=== PATIENT | female | born 2000 | race Caucasian/White ===

== ENCOUNTER 2021-02-15 01:33 | Emergency (ER) | payer OTHER ==
--- NOTE | 2021-02-15 02:14 | ERPHSYRPT ---
- History of Present Illness Time Seen by Provider: 02/15/21 02:14 Historian: patient, family Exam Limitations: no limitations Physician History: This is a 20-year-old white female who presents with 2 days history of left lower quadrant/left suprapubic pain. The pain is sharp and nonradiating. Associated with nausea but no vomiting. She has had no diarrhea. She is currently on her menstrual period he has never had a thing like this in the past. She has no chest pain she has no shortness of breath. Patient has taken a amoxicillin plane in the past without any issues per mom report. Timing/Duration: day(s) (2) Activities at Onset: none Quality: sharpness, stabbing Abdominal Pain Onset Location: LLQ Pain Radiation: no radiation Severity of Pain-Max: moderate Severity of Pain-Current: mild Modifying Factors: Improves With: nothing Associated Symptoms: nausea, No chest pain, No diarrhea, No fever/chills, No shortness of breath, No vomiting Previous symptoms: no prior history Allergies/Adverse Reactions: amoxicillin trihydrate [From Augmentin] Allergy (Verified 02/15/21 04:00) Shortness of Breath potassium clavulanate [From Augmentin] Allergy (Verified 02/15/21 04:00) Shortness of Breath Hx Influenza Vaccination/Date Given: No Travel Risk - International Travel Have you traveled outside of the country in past 3 weeks: No - Coronavirus Screening Are you exhibiting any of the following symptoms?: No Close contact with a COVID-19 positive Pt in past 14-21 Days: No - Review of Systems Constitutional: No Symptoms Eyes: No Symptoms Ears, Nose, & Throat: No Symptoms Respiratory: No Symptoms Cardiac: No Symptoms Abdominal/Gastrointestinal: Abdominal Pain, Nausea, No Vomiting, No Diarrhea Genitourinary Symptoms: No Symptoms Musculoskeletal: No Symptoms Skin: No Symptoms Neurological: No Symptoms Psychological: No Symptoms Endocrine: No Symptoms Hematologic/Lymphatic: No Symptoms Immunological/Allergic: No Symptoms All Other Systems: Reviewed and Negative - Past Medical History Pertinent Past Medical History: No Neurological History: No Pertinent History Cardiac History: No Pertinent History Respiratory History: No Pertinent History Endocrine Medical History: No Pertinent History Musculoskeletal History: No Pertinent History - Past Surgical History Past Surgical History: Yes Musculoskeletal: Other Other Surgical History: dental, tubes in ears, adenoidectomy - Social History Smoking Status: Never smoker Exposure to second hand smoke: Yes Drug Use: none - Nursing Vital Signs Nursing Vital Signs: Initial Vital Signs Temperature 98.2 F 02/15/21 02:00 Pulse Rate 86 02/15/21 02:00 Respiratory Rate 18 02/15/21 02:00 Blood Pressure 140/88 02/15/21 02:00 O2 Sat by Pulse Oximetry 99 02/15/21 02:00 Pain Scale Pain Intensity 3 - Physical Exam General Appearance: no apparent distress, alert, anxiety, obese Eye Exam: PERRL/EOMI, eyes nml inspection Ears, Nose, Throat Exam: normal ENT inspection, moist mucous membranes Neck Exam: normal inspection, non-tender, supple, full range of motion Respiratory Exam: normal breath sounds, lungs clear, airway intact, No chest tenderness, No respiratory distress Cardiovascular Exam: regular rate/rhythm, normal heart sounds, normal peripheral pulses Gastrointestinal/Abdomen Exam: soft, normal bowel sounds, tenderness (Left lower quadrant), guarding, No rebound Pelvic Exam: not done Rectal Exam: not done Back Exam: normal inspection, normal range of motion, No CVA tenderness, No vertebral tenderness Extremity Exam: normal inspection, normal range of motion, pelvis stable Neurologic Exam: alert, oriented x 3, cooperative, criminal justice lawyer II-XII nml as tested, normal mood/affect, nml cerebellar function, nml station & gait, sensation nml Skin Exam: normal color, warm, dry Lymphatic Exam: No adenopathy SpO2 Interpretation: normal O2 Delivery: Room Air - Course Nursing assessment & vital signs reviewed: Yes Ordered Tests: Active Orders 24 hr Category Date Time Status IV Insertion STAT Care 02/15/21 02:30 Active ABDOMEN AND PELVIS W/0 CONTRAS [CT] Stat Exams 02/15/21 02:31 Taken AMYLASE Stat Lab 02/15/21 02:59 Completed CBC W DIFF Stat Lab 02/15/21 02:59 Completed CMP Stat Lab 02/15/21 02:59 Completed CULTURE,URINE Stat Lab 02/15/21 02:59 Received HCG,QUALITATIVE URINE Stat Lab 02/15/21 02:59 Completed LIPASE Stat Lab 02/15/21 02:59 Completed Lactic Acid Stat Lab 02/15/21 03:00 Completed UA W/RFX UR CULTURE Stat Lab 02/15/21 02:59 Completed Medication Summary Generic Name Dose Route Start Last Admin Trade Name Freq PRN Reason Stop Dose Admin Ceftriaxone Sodium/Dextrose 1 g in 50 mls @ 100 mls/hr 02/15/21 05:34 Rocephin 1 Gm-D5w 50 Ml Bag IV 02/15/21 06:03 STAT STA Discontinued Medications Generic Name Dose Route Start Last Admin Trade Name Ki PRN Reason Stop Dose Admin Ceftriaxone Sodium/Dextrose Confirm 02/15/21 05:41 Rocephin 1 Gm-D5w 50 Ml Bag Administered 02/15/21 05:42 Dose 1 g in 50 mls @ ud IV .STK-MED ONE Lab/Rad Data: Laboratory Result Diagrams 02/15/21 02:59 02/15/21 02:59 Laboratory Results 02/15/21 02/15/21 02/15/21 Range/Units 03:00 02:59 02:59 WBC (4.0-10.5) K/mm3 RBC (4.1-5.4) M/mm3 Hgb (12.0-16.0) gm/dl Hct (35-47) % MCV (78-100) fl MCH (26-32) pg MCHC (32-36) g/dl RDW (11.5-14.0) % Plt Count (150-450) K/mm3 MPV (7.5-11.0) fl Gran % (36.0-66.0) % Eos # (Auto) (0-0.5) Absolute Lymphs (auto) (1.0-4.6) Absolute Monos (auto) (0.0-1.3) Lymphocytes % (24.0-44.0) % Monocytes % (0.0-12.0) % Eosinophils % (0.00-5.0) % Basophils % (0.0-0.4) % Absolute Granulocytes (1.4-6.9) Basophils # (0-0.4) Sodium 141 (137-145) mmol/L Potassium 3.7 (3.5-5.1) mmol/L Chloride 106 (98-107) mmol/L Carbon Dioxide 25 (22-30) mmol/L Anion Gap 13.5 (5-15) MEQ/L BUN 8 (7-17) mg/dL Creatinine 0.75 (0.52-1.04) mg/dL Estimated GFR > 60.0 ML/MIN Glucose 98 (74-106) mg/dL Lactic Acid 1.0 (0.4-2.0) Calcium 9.6 (8.4-10.2) mg/dL Total Bilirubin 0.30 (0.2-1.3) mg/dL AST 20 (14-36) U/L ALT 9 (0-35) U/L Alkaline Phosphatase 82 (38-126) U/L Serum Total Protein 7.7 (6.3-8.2) g/dL Albumin 4.4 (3.5-5.0) g/dL Amylase 64 (30-110) U/L Lipase 65 (23-300) U/L Urine Color (YELLOW) Urine Appearance (CLEAR) Urine pH (5-6) Ur Specific Iselin (1.005-1.025) Urine Protein (Negative) Urine Ketones (NEGATIVE) Urine Blood (0-5) Garcia/ul Urine Nitrite (NEGATIVE) Urine Bilirubin (NEGATIVE) Urine Urobilinogen (0-1) mg/dL Ur Leukocyte Esterase (NEGATIVE) Urine WBC (Auto) (0-5) /HPF Urine RBC (Auto) (0-2) /HPF U Epithel Cells (Auto) (FEW) /HPF Urine Bacteria (Auto) (NEGATIVE) /HPF Urine Culture Reflexed (NO) Urine Glucose (NEGATIVE) mg/dL Urine HCG, Qual NEGATIVE (Negative) 02/15/21 02/15/21 Range/Units 02:59 02:59 WBC 8.4 (4.0-10.5) K/mm3 RBC 3.75 L (4.1-5.4) M/mm3 Hgb 11.8 L (12.0-16.0) gm/dl Hct 37.0 (35-47) % MCV 98.7 (78-100) fl MCH 31.5 (26-32) pg MCHC 31.9 L (32-36) g/dl RDW 12.7 (11.5-14.0) % Plt Count 303 (150-450) K/mm3 MPV 10.5 (7.5-11.0) fl Gran % 44.1 (36.0-66.0) % Eos # (Auto) 0.09 (0-0.5) Absolute Lymphs (auto) 4.08 (1.0-4.6) Absolute Monos (auto) 0.51 (0.0-1.3) Lymphocytes % 48.6 H (24.0-44.0) % Monocytes % 6.1 (0.0-12.0) % Eosinophils % 1.1 (0.00-5.0) % Basophils % 0.1 (0.0-0.4) % Absolute Granulocytes 3.71 (1.4-6.9) Basophils # 0.01 (0-0.4) Sodium (137-145) mmol/L Potassium (3.5-5.1) mmol/L Chloride (98-107) mmol/L Carbon Dioxide (22-30) mmol/L Anion Gap (5-15) MEQ/L BUN (7-17) mg/dL Creatinine (0.52-1.04) mg/dL Estimated GFR ML/MIN Glucose (74-106) mg/dL Lactic Acid (0.4-2.0) Calcium (8.4-10.2) mg/dL Total Bilirubin (0.2-1.3) mg/dL AST (14-36) U/L ALT (0-35) U/L Alkaline Phosphatase (38-126) U/L Serum Total Protein (6.3-8.2) g/dL Albumin (3.5-5.0) g/dL Amylase (30-110) U/L Lipase (23-300) U/L Urine Color STRAW (YELLOW) Urine Appearance SLIGHTLY CLOUDY (CLEAR) Urine pH 7.0 (5-6) Ur Specific Iselin 1.004 (1.005-1.025) Urine Protein NEGATIVE (Negative) Urine Ketones NEGATIVE (NEGATIVE) Urine Blood LARGE (0-5) Garcia/ul Urine Nitrite NEGATIVE (NEGATIVE) Urine Bilirubin NEGATIVE (NEGATIVE) Urine Urobilinogen NEGATIVE (0-1) mg/dL Ur Leukocyte Esterase SMALL (NEGATIVE) Urine WBC (Auto) 3-5 (0-5) /HPF Urine RBC (Auto) 0-2 (0-2) /HPF U Epithel Cells (Auto) RARE (FEW) /HPF Urine Bacteria (Auto) RARE (NEGATIVE) /HPF Urine Culture Reflexed YES (NO) Urine Glucose NEGATIVE (NEGATIVE) mg/dL Urine HCG, Qual (Negative) - Progress Progress: improved, pain not gone completely, re-examined Progress Note: 02/15/21 05:47 Reexamination reveals the patient to have resolution of her pain. CAT scan of the abdomen pelvis without contrast shows no acute intra-abdominal or intrapelvic findings. 02/15/21 05:49 Patient is refusing intravenous Rocephin. She will take her oral antibiotic prescription once she picks it up at the pharmacy Counseled pt/family regarding: lab results, diagnosis, need for follow-up, rad results - Departure Departure Disposition: Home Clinical Impression: UTI (urinary tract infection) Condition: Stable Critical Care Time: No Referrals: ALONDRA MADDEN MD [Primary Care Provider] - Additional Instructions: Drink plenty of fluids. Take medication as prescribed. Use Tylenol and ibuprofen for pain control. Prescriptions: Ciprofloxacin [Cipro 500 MG] 500 mg PO BID #14 tablet
[2021-02-15 03:02] LABS: Absolute Neutrophil Ct (ANC) 3.71 (1.4-6.9); BASOPHIL % 0.1 % (0.0-0.4); Basophil (Absolute #) 0.01 (0-0.4); Eosinophil % 1.1 % (0.00-5.0); Eosinophil (Absolute #) 0.09 (0-0.5); Hemoglobin 11.8 gm/dl (12.0-16.0); Lymphocyte (Absolute #) 4.08 (1.0-4.6); Lymphocytes % 48.6 % (24.0-44.0); Mean Cell Volume 98.7 fl (78-100); Mean Corpuscular Hemoglobin 31.5 pg (26-32); Mean Corpuscular Hgb Concent. 31.9 g/dl (32-36); Mean Platelet Volume 10.5 fl (7.5-11.0); Monocyte (Absolute #) 0.51 (0.0-1.3); Monocytes % 6.1 % (0.0-12.0); Neutrophil % 44.1 % (36.0-66.0); Platelet Count 303 K/mm3 (150-450); Red Blood Count 3.75 M/mm3 (4.1-5.4); Red Cell Distribution Width 12.7 % (11.5-14.0); White Blood Count 8.4 K/mm3 (4.0-10.5)
[2021-02-15 03:12] LABS: Appearance SLIGHTLY CLOUDY (CLEAR); Bacteria RARE /HPF (NEGATIVE); Bilirubin NEGATIVE (NEGATIVE); Blood LARGE Ery/ul (0-5); Epithelial Cells RARE /HPF (FEW); Glucose NEGATIVE (NEGATIVE); Ketones NEGATIVE (NEGATIVE); Leukocyte Esterase SMALL (NEGATIVE); Nitrite NEGATIVE (NEGATIVE); Protein,Urine Dip NEGATIVE (Negative); RBC 0-2 /HPF (0-2); Specific Gravity 1.004 (1.005-1.025); Urobilinogen NEGATIVE mg/dL (0-1)
[2021-02-15 03:13] LABS: ALBUMIN 4.4 g/dL (3.5-5.0); ALKALINE PHOSPHATASE 82 U/L (38-126); AMYLASE 64 U/L (30-110); ANION GAP 13.5 MEQ/L (5-15); BLOOD UREA NITROGEN 8 mg/dL (7-17); CHLORIDE 106 mmol/L (98-107); Calcium 9.6 mg/dL (8.4-10.2); Carbon Dioxide 25 mmol/L (22-30); Creatinine 1 0.75 mg/dL (0.52-1.04); EST GLOMERULAR FILTRATION RATE > 60.0 ML/MIN; Glucose 98 mg/dL (74-106); LIPASE 65 U/L (23-300); Potassium 3.7 mmol/L (3.5-5.1); SGOT/AST 20 U/L (14-36); SGPT/ALT 9 U/L (0-35); SODIUM 141 mmol/L (137-145); Total Protein 7.7 g/dL (6.3-8.2)
[2021-02-15 03:38] VITALS: O2SAT 98
[2021-02-15] MEDS ORDERED: ROCEPHIN 1 Gm-D5w 50 ml Bag** 1 G/50 ML IVPB IV STA (05:34)
[2021-02-15] MEDS ORDERED: ROCEPHIN 1 Gm-D5w 50 ml Bag** 0 G/0 ML IVPB IV ONE (05:41)
[2021-02-15 06:19] VITALS: BP 118/86; PULSE 78
--- NOTE | 2021-02-15 07:51 | XRAY ---
Indication: Abdomen pain and nausea. Multiple contiguous axial images obtained through the abdomen and pelvis without contrast. Comparison: None Lung bases are clear. Heart not enlarged. Noncontrasted stomach and bowel loops are nonobstructed. Normal appendix. Mild diffuse scattered colonic fecal debris greatest in the ascending colon. No free fluid/air. Scattered centimeter/subcentimeter mid mesenteric nodes, possibly adenitis. Remaining liver, gallbladder, pancreas, spleen, adrenal glands, kidneys, ureters, bladder, uterus, and aorta unremarkable for noncontrast exam. Osseous structures intact. No ventral or inguinal hernias. Impression: 1. Mild fecal stasis. 2. Scattered centimeter/subcentimeter mesenteric nodes, possibly adenitis. 3. Remaining CT abdomen/pelvis without contrast exam is negative. Comment: Preliminary interpretation was made by [facility]. No critical discrepancy.
== END 2021-02-15 06:18 | disposition home or self-care (01) ==
LOC: ED 01:33
DX: N39.0 Urinary tract infection, site not specified (principal); R10.32 Left lower quadrant pain; R11.0 Nausea
CPT/HCPCS: 36000; 36415; 74176; 80053; 81001; 82150; 83605; 83690; 84703; 85025; 87077; 87086; 87186; 99284; J0696

== ENCOUNTER 2021-12-09 23:43 | Emergency (ER) | payer OTHER ==
--- NOTE | 2021-12-10 00:44 | ERPHSYRPT ---
- History of Present Illness Time Seen by Provider: 12/10/21 00:10 Source: patient Exam Limitations: no limitations Patient Subjective Stated Complaint: pt states "My stomach started cramping last night before I went to bed and I am worried since I am ." Triage Nursing Assessment: Pt alert and oriented x3, pt ambulated to cot appropriately by self, pt attempted to give urine sample but unable at this time, pt c/o lower abd cramping that started around 2300 when she was going to bed, pt states "it feels like period cramps," pt is 7 weeks , Dr. Hodge is OB doctor, pt had first ultrasound on 12/07, pt denies bleeding, fever, vom iting, diarrhea Physician History: Patient is a 21-year-old female M0 A0, currently 7 weeks presents to our ED for evaluation of pelvic cramping. Cramping started last night. Cramping became progressively worse. Patient rated the pain 11 on a 10 on a scale. No vaginal bleeding.However upon arrival to our ED, cramping pain significantly improved. Cramping pain currently rated 2 out of 10. Patient declined pain medication. Patient states she had a pelvic exam within the past couple weeks at Dr. Longo's office. Patient states all was normal. Patient declined a pelvic exam at this time. She has no vaginal bleeding.Patient's last pelvic ultrasound was performed on December 07. Patient states she recently had an hCG performed in her OBs office. Patient was advised that the hCG level is dropping. Her OB then ordered an ultrasound to be performed this morning. Patient came early this morning and did not wait for her a.m. ultrasound because the pain was so severe.Patient is otherwise healthy. Patient has been taking her vitamins as Recommended. Patient otherwise voices no other complaints or concerns at this time. Timing/Duration: yesterday Severity: mild Modifying Factors: Improves With: nothing Associated Symptoms: denies symptoms, No nausea, No vomiting, No abdominal pain, No shortness of breath, No diaphoresis, No headaches, No syncope, No seizure, No weakness Allergies/Adverse Reactions: amoxicillin trihydrate [From Augmentin] Allergy (Verified 12/10/21 00:02) Shortness of Breath potassium clavulanate [From Augmentin] Allergy (Verified 12/10/21 00:02) Shortness of Breath Hx Tetanus, Diphtheria Vaccination/Date Given: No Hx Influenza Vaccination/Date Given: No Hx Pneumococcal Vaccination/Date Given: No Immunizations Up to Date: Yes Travel Risk - International Travel Have you traveled outside of the country in past 3 weeks: No - Coronavirus Screening Are you exhibiting any of the following symptoms?: No - Vaccine Status Have you recieved a Covid-19 vaccination: Yes [employer]: [employer] - Vaccination Dates Date of 2cond Vaccination (if applicable): jun 2021 - Review of Systems Constitutional: No Symptoms, No Fever, No Chills Eyes: No Symptoms Ears, Nose, & Throat: No Symptoms Respiratory: No Symptoms, No Cough, No Dyspnea Cardiac: No Symptoms, No Chest Pain, No Edema, No Syncope Abdominal/Gastrointestinal: No Symptoms, No Abdominal Pain, No Nausea, No Vomiting, No Diarrhea Genitourinary Symptoms: No Symptoms, No Dysuria Musculoskeletal: No Symptoms, No Back Pain, No Neck Pain Skin: No Symptoms, No Rash Neurological: No Symptoms, No Dizziness, No Focal Weakness, No Sensory Changes Psychological: No Symptoms Endocrine: No Symptoms Hematologic/Lymphatic: No Symptoms Immunological/Allergic: No Symptoms All Other Systems: Reviewed and Negative - Past Medical History Pertinent Past Medical History: No Neurological History: No Pertinent History ENT History: No Pertinent History Cardiac History: No Pertinent History Respiratory History: No Pertinent History Endocrine Medical History: No Pertinent History Musculoskeletal History: No Pertinent History GI Medical History: No Pertinent History History: No Pertinent History Psycho-Social History: No Pertinent History Female Reproductive Disorders: No Pertinent History - Past Surgical History Past Surgical History: Yes Neuro Surgical History: No Pertinent History Cardiac: No Pertinent History Respiratory: No Pertinent History Gastrointestinal: No Pertinent History Genitourinary: No Pertinent History Musculoskeletal: Other Female Surgical History: No Pertinent History Other Surgical History: dental, tubes in ears, adenoidectomy - Social History Smoking Status: Former smoker Exposure to second hand smoke: Yes Drug Use: none Patient Lives Alone: No - Female History Hx Last Menstrual Period: Oct 16, 2021 Hx Now: Yes - Nursing Vital Signs Nursing Vital Signs: Initial Vital Signs Temperature 99.6 F 12/10/21 00:05 Pulse Rate 101 H 12/10/21 00:05 Respiratory Rate 16 12/10/21 00:05 Blood Pressure 132/83 12/10/21 00:05 O2 Sat by Pulse Oximetry 100 12/10/21 00:05 Pain Scale Pain Intensity 2 - Physical Exam General Appearance: no apparent distress, alert Eye Exam: PERRL/EOMI, eyes nml inspection Ears, Nose, Throat Exam: normal ENT inspection, TMs normal, pharynx normal, moist mucous membranes Neck Exam: normal inspection, non-tender, supple, full range of motion Respiratory Exam: normal breath sounds, lungs clear, airway intact, No respiratory distress Cardiovascular Exam: regular rate/rhythm, normal heart sounds, normal peripheral pulses Gastrointestinal/Abdomen Exam: soft, normal bowel sounds, No tenderness, No mass Back Exam: normal inspection, normal range of motion, No CVA tenderness, No vertebral tenderness Extremity Exam: normal inspection, normal range of motion, pelvis stable Neurologic Exam: alert, oriented x 3, cooperative, normal mood/affect, nml cerebellar function, nml station & gait, sensation nml, No motor deficits Skin Exam: normal color, warm, dry, No rash Lymphatic Exam: No adenopathy SpO2 Interpretation: normal SpO2: 100 O2 Delivery: Room Air - Course Nursing assessment & vital signs reviewed: Yes - Radiology Ultrasound Exam OB Ultrasound: discussed w/radiologist (Per hydrogen cell tender ultrasound shows a fetus of 6 weeks 6 days with a heart rate of 149) Ordered Tests: Active Orders 24 hr Category Date Time Status OB <14 WKS 1ST GESTATION [US] Stat Exams 12/10/21 00:28 Taken CBC W DIFF Stat Lab 12/10/21 00:43 Completed CMP Stat Lab 12/10/21 00:43 Completed HCG, Quantitative (Inhouse) Stat Lab 12/10/21 00:43 Completed Lab/Rad Data: Laboratory Result Diagrams 12/10/21 00:43 12/10/21 00:43 Laboratory Results 12/10/21 12/10/21 12/10/21 Range/Units 01:26 00:43 00:43 WBC (4.0-10.5) K/mm3 RBC (4.1-5.4) M/mm3 Hgb (12.0-16.0) gm/dl Hct (35-47) % MCV (78-100) fl MCH (26-32) pg MCHC (32-36) g/dl RDW (11.5-14.0) % Plt Count (150-450) K/mm3 MPV (7.5-11.0) fl Gran % (36.0-66.0) % Eos # (Auto) (0-0.5) Absolute Lymphs (auto) (1.0-4.6) Absolute Monos (auto) (0.0-1.3) Lymphocytes % (24.0-44.0) % Monocytes % (0.0-12.0) % Eosinophils % (0.00-5.0) % Basophils % (0.0-0.4) % Absolute Granulocytes (1.4-6.9) Basophils # (0-0.4) Sodium 139 (137-145) mmol/L Potassium 3.9 (3.5-5.1) mmol/L Chloride 106 (98-107) mmol/L Carbon Dioxide 22 (22-30) mmol/L Anion Gap 14.2 (5-15) MEQ/L BUN 8 (7-17) mg/dL Creatinine 0.61 (0.52-1.04) mg/dL Estimated GFR > 60.0 ML/MIN Glucose 93 (74-106) mg/dL Calcium 9.5 (8.4-10.2) mg/dL Total Bilirubin 0.50 (0.2-1.3) mg/dL AST 18 (14-36) U/L ALT 9 (0-35) U/L Alkaline Phosphatase 63 (38-126) U/L Serum Total Protein 6.9 (6.3-8.2) g/dL Albumin 4.2 (3.5-5.0) g/dL Beta HCG, Quant 5839.1 mIU/ml Urinalys Dipstick Clnc MAIN LAB Urine Color YELLOW (YELLOW) Urine Appearance CLEAR (CLEAR) Urine pH 6.5 (5-6) Ur Specific Mcdonald 1.015 (1.005-1.025) POC Urine Protein Conf NEGATIVE (Negative) Urine Ketones NEGATIVE (NEGATIVE) Urine Nitrite NEGATIVE (NEGATIVE) Urine Bilirubin NEGATIVE (NEGATIVE) Urine Urobilinogen 0.2 (0-1) mg/dL Urine Leukocytes NEGATIVE (NEGATIVE) Urine WBC (Auto) 0-2 (0-5) /HPF Urine RBC (Auto) 0-2 (0-2) /HPF U Epithel Cells (Auto) RARE (FEW) /HPF Urine Bacteria (Auto) NONE (NEGATIVE) /HPF Urine RBC NEGATIVE (0-5) Garcia/ul Ur Culture Indicated? NO Urine Glucose NEGATIVE (NEGATIVE) mg/dL 12/10/21 Range/Units 00:43 WBC 7.5 (4.0-10.5) K/mm3 RBC 3.51 L (4.1-5.4) M/mm3 Hgb 11.2 L (12.0-16.0) gm/dl Hct 34.9 L (35-47) % MCV 99.4 (78-100) fl MCH 31.9 (26-32) pg MCHC 32.1 (32-36) g/dl RDW 13.3 (11.5-14.0) % Plt Count 256 (150-450) K/mm3 MPV 10.6 (7.5-11.0) fl Gran % 57.2 (36.0-66.0) % Eos # (Auto) 0.08 (0-0.5) Absolute Lymphs (auto) 2.68 (1.0-4.6) Absolute Monos (auto) 0.44 (0.0-1.3) Lymphocytes % 35.7 (24.0-44.0) % Monocytes % 5.9 (0.0-12.0) % Eosinophils % 1.1 (0.00-5.0) % Basophils % 0.1 (0.0-0.4) % Absolute Granulocytes 4.30 (1.4-6.9) Basophils # 0.01 (0-0.4) Sodium (137-145) mmol/L Potassium (3.5-5.1) mmol/L Chloride (98-107) mmol/L Carbon Dioxide (22-30) mmol/L Anion Gap (5-15) MEQ/L BUN (7-17) mg/dL Creatinine (0.52-1.04) mg/dL Estimated GFR ML/MIN Glucose (74-106) mg/dL Calcium (8.4-10.2) mg/dL Total Bilirubin (0.2-1.3) mg/dL AST (14-36) U/L ALT (0-35) U/L Alkaline Phosphatase (38-126) U/L Serum Total Protein (6.3-8.2) g/dL Albumin (3.5-5.0) g/dL Beta HCG, Quant mIU/ml Urinalys Dipstick Clnc Urine Color (YELLOW) Urine Appearance (CLEAR) Urine pH (5-6) Ur Specific Mcdonald (1.005-1.025) POC Urine Protein Conf (Negative) Urine Ketones (NEGATIVE) Urine Nitrite (NEGATIVE) Urine Bilirubin (NEGATIVE) Urine Urobilinogen (0-1) mg/dL Urine Leukocytes (NEGATIVE) Urine WBC (Auto) (0-5) /HPF Urine RBC (Auto) (0-2) /HPF U Epithel Cells (Auto) (FEW) /HPF Urine Bacteria (Auto) (NEGATIVE) /HPF Urine RBC (0-5) Garcia/ul Ur Culture Indicated? Urine Glucose (NEGATIVE) mg/dL - Progress Progress: improved Progress Note: Patient reassessed. She remains pain-free. Case discussed with Dr. Hodge. Patient will called Dr. Hodge's Office in the morning to schedule follow-up appointment. 12/10/21 02:16 Beta hCG quant now trending upward. hCG on November 23 was 6198.7, HCG Dropped to 5599.6 on December 07, And today December 09 hCG increased to 5839.1 Patient agrees to follow-up with her [employer] doctor in the morning. She voices no other complaints or concerns at this time. Patient declined pain medication. Portions of this note were created with voice recognition technology. There may be grammatical, spelling, punctuation or sound alike errors 12/10/21 02:19 No urinary tract Infection observed on urinalysis 12/10/21 02:[address] Isaura Will see patient in: office Counseled pt/family regarding: lab results, diagnosis, rad results - Departure Departure Disposition: Home Clinical Impression: Pelvic cramping in antepartum period Condition: Stable Critical Care Time: No Referrals: ALONDRA MADDEN MD [Primary Care Provider] - Follow up/PCP as directed ALPA HODGE DO [ACTIVE STAFF] - Follow up/PCP as directed Additional Instructions: Discharge/Care Plan VLADROCIO TONE was seen on 12/10/21 in the Emergency Room. The patient was counseled regarding Diagnosis,Lab results, Imaging studies, need for follow up and when to return to the Emergency Room. Prescriptions given: Discharge Note I have spoken with the patient and/or caregivers. I have explained the patient's condition, diagnosis and treatment plan based on the information available to me at this time. I have answered the patient's and/or caregiver's questions and addressed any concerns. The patient and/or caregivers have as good understanding of the patient's diagnosis, condition and treatment plan as can be expected at this point. The vital signs have been stable. The patient's condition is stable and appropriate for discharge from the emergency department. The patient will pursue further outpatient evaluation with the primary care physician or other designated or consulting physician as outlined in the discharge instructions. The patient and/or caregivers are agreeable to this plan of care and follow-up instructions have been explained in detail. The patient and/or caregivers have received these instruction. The patient/and or caregivers are aware that any significant change in condition or worsening of symptoms should prompt an immediate return to this or the closest emergency department or call 911.
[2021-12-10 00:46] LABS: Basophil (Absolute #) 0.01 (0-0.4); Eosinophil % 1.1 % (0.00-5.0); Eosinophil (Absolute #) 0.08 (0-0.5); Hematocrit 34.9 % (35-47); Hemoglobin 11.2 gm/dl (12.0-16.0); Lymphocyte (Absolute #) 2.68 (1.0-4.6); Lymphocytes % 35.7 % (24.0-44.0); Mean Cell Volume 99.4 fl (78-100); Mean Corpuscular Hemoglobin 31.9 pg (26-32); Mean Corpuscular Hgb Concent. 32.1 g/dl (32-36); Mean Platelet Volume 10.6 fl (7.5-11.0); Monocyte (Absolute #) 0.44 (0.0-1.3); Monocytes % 5.9 % (0.0-12.0); Neutrophil % 57.2 % (36.0-66.0); Platelet Count 256 K/mm3 (150-450); Red Blood Count 3.51 M/mm3 (4.1-5.4); Red Cell Distribution Width 13.3 % (11.5-14.0); White Blood Count 7.5 K/mm3 (4.0-10.5)
[2021-12-10 01:03] LABS: ALBUMIN 4.2 g/dL (3.5-5.0); ALKALINE PHOSPHATASE 63 U/L (38-126); ANION GAP 14.2 MEQ/L (5-15); BLOOD UREA NITROGEN 8 mg/dL (7-17); CHLORIDE 106 mmol/L (98-107); Calcium 9.5 mg/dL (8.4-10.2); Carbon Dioxide 22 mmol/L (22-30); Creatinine 1 0.61 mg/dL (0.52-1.04); EST GLOMERULAR FILTRATION RATE > 60.0 ML/MIN; Glucose 93 mg/dL (74-106); Potassium 3.9 mmol/L (3.5-5.1); SGOT/AST 18 U/L (14-36); SGPT/ALT 9 U/L (0-35); SODIUM 139 mmol/L (137-145); Total Protein 6.9 g/dL (6.3-8.2)
[2021-12-10 01:40] LABS: Appearance CLEAR (CLEAR); Bilirubin NEGATIVE (NEGATIVE); Dipstick done @ ? MAIN LAB; Glucose NEGATIVE (NEGATIVE); Ketones NEGATIVE (NEGATIVE); Nitrite NEGATIVE (NEGATIVE); Ph 6.5 (5-6); Protein,Urine Dip NEGATIVE (Negative); RBC NEGATIVE Ery/ul (0-5); Specific Gravity 1.015 (1.005-1.025); Urobilinogen 0.2 mg/dL (0-1)
[2021-12-10 01:41] LABS: Epithelial Cells RARE /HPF (FEW); RBC 0-2 /HPF (0-2); WBC 0-2 /HPF (0-5)
[2021-12-10 01:42] LABS: Urine Cultured Indicated? NO
[2021-12-10 02:07] VITALS: BP 114/81; PULSE 86
[2021-12-10 02:21] VITALS: O2SAT 100
--- NOTE | 2021-12-10 08:49 | XRAY ---
Indication: Cramping. viability. Two-dimensional transvaginal early OB ultrasound performed. Comparison: None Single intrauterine gestational sac with presence of a single pole and yolk sac. Mean crown-rump length measures 0.88 cm corresponding to 6 weeks 6 days. heart rate 149 bpm. No abnormal subchorionic fluid. Lower uterine segment demonstrates tiny sliver of fluid. Right ovary unremarkable. Left ovary not visualized. Impression: Single viable intrauterine measuring 6 weeks 6 days. Expected date confinement is July 30, 2022. Tiny nonspecific fluid in lower uterine segment. Comment: Preliminary report was given.
== END 2021-12-10 02:41 | disposition home or self-care (01) ==
LOC: ED 23:43
DX: O26.891 Other specified pregnancy related conditions, first trimester (principal); Z3A.01 Less than 8 weeks gestation of pregnancy; R10.2 Pelvic and perineal pain
CPT/HCPCS: 36415; 76801; 80053; 81015; 84702; 85025; 99284

== ENCOUNTER 2021-12-15 06:31 | Day surgery (SDC) | payer OTHER ==
[~2021-12-15 06:31] MED LIST: Lactated Ringers 1,000 ML IV SCH
[2021-12-15] MEDS ORDERED: Vibramycin 100 MG PO SCH (07:30)
[2021-12-15] MEDS ORDERED: Lactated Ringers 1,000 ML IV ONE (07:31)
[2021-12-15] MEDS ORDERED: SUBLIMAZE 100 MCG/2 ML ONE ×2 (08:29→09:09)
[2021-12-15] MEDS ORDERED: Versed 2 MG/2 ML Injection ONE (08:29)
[2021-12-15] MEDS ORDERED: DIPRIVAN 200 MG/20 ML IV ONE (08:29)
--- NOTE | 2021-12-15 08:38 | XRAY ---
Indication: No heart tones. demise. Limited transvaginal early OB ultrasound performed. Comparison: December 11, 2021. Again single intrauterine gestational sac with presence of a single pole. Mean crown-rump length measures 1.16 cm corresponding to 7 weeks 2 days. No heart tones detected. Impression: Again single intrauterine measuring 7 weeks 2 days. No progression in . Also no heart tones again favoring demise.
[2021-12-15] MEDS ORDERED: Decadron 4 MG INJ ONE (08:44)
[2021-12-15] MEDS ORDERED: Zofran 4 MG/2 ML VIAL ONE (08:46)
[2021-12-15] MEDS ORDERED: TORAdol 30 mg Injection ONE (08:47)
[2021-12-15 10:03] LABS: ABO TYPING O; RH TYPING POSITIVE
[2021-12-15 10:14] LABS: Antibody Screen NEGATIVE (NEGATIVE)
[2021-12-15 10:28] VITALS: BP 106/61; PULSE 70; O2SAT 99
--- NOTE | 2021-12-17 07:52 | OP ---
SURGERY DATE/TIME: 12/15/2021821 PREOPERATIVE DIAGNOSIS: demise at 7 weeks gestation. POSTOPERATIVE DIAGNOSIS: demise at 7 weeks gestation. PROCEDURE: Suction D&C. SURGEON: Mandeep Hodge D.O. GLASS BULB SILVERER: Alee Holley surgical garment fitter. ANESTHESIA: General. ESTIMATED BLOOD LOSS: Minimal. COMPLICATIONS: None. INDICATIONS: The risks, benefits, indications and alternatives of the procedure were reviewed with the patient prior to procedure. The patient understood the risk of infection, bleeding, bowel injury, bladder injury, ureteral injury, uterine perforation and pelvic infection associated with this surgery however desires to have this surgery as a possible means to alleviate her current medical condition. DESCRIPTION OF PROCEDURE AND FINDINGS: At this point the patient is taken to the operating room, given general sedation, placed in dorsal lithotomy position, prepped and draped in the usual sterile fashion. A weighted speculum is then placed in the patient's vagina and the anterior lip of the cervix is grasped with a single tooth tenaculum. Endocervical dilators were used to dilate the cervix and a #7 curved suction Vacurette was then placed into the fundus of the uterus where the suction machine was turned on and suctioning of the uterine content was obtained and was done so without complication. After complete suctioning, the Vacurette was removed and the curette was then placed into the fundus of the uterus and curettage was performed in all quadrants of the uterus retrieving the remaining endometrial tissue. From this point hemostasis was obtained. All instruments were removed from the patient's vaginal region. The patient was taken out of the dorsal lithotomy position and was taken out of anesthesia and was then taken to the recovery room in stable condition. All instruments and laps were accounted for x2.
== END 2021-12-15 10:30 | disposition home or self-care (01) ==
LOC: SDC 06:31
PROVIDERS: ATTEND Obstetrics & Gynecology
DX: O36.4XX0 Maternal care for intrauterine death, not applicable or unspecified (principal)
CPT/HCPCS: 36415; 76815; 86850; 86900; 86901; J1100; J1885; J2250; J2405; J2704; J3010; A9270-GY

== ENCOUNTER 2022-04-13 20:03 | Emergency (ER) | payer OTHER ==
--- NOTE | 2022-04-13 20:50 | ERPHSYRPT ---
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 states she feels the pain in lower abdomen as 4/10 Triage Nursing Assessment: pt is alert and oriented, walked back to room without assistance. states that she fells pain and cramping at this time, but it is intermittent. Physician History: Patient is a 22-year-old female presents to emergency department for evaluation of intermittent pelvic cramping. When cramping is present pain is 4 out of 10. No active cramping at this time. Patient is a M1. Patient follows . Patient concerned with viability. Patient also states that she has been experiencing white cheeselike discharge from her vagina. Symptoms are mild to moderate in intensity. No specific worsening improving factors. 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 Patient voices no other complaints or concerns at this time. Portions of this note were created with voice recognition technology. There may be grammatical, spelling, punctuation or sound alike errors Timing/Duration: today Severity: moderate Modifying Factors: Improves With: nothing Associated Symptoms: denies symptoms Allergies/Adverse Reactions: amoxicillin trihydrate [From Augmentin] Allergy (Verified 04/13/22 20:15) Shortness of Breath potassium clavulanate [From Augmentin] Allergy (Verified 04/13/22 20:15) Shortness of Breath Hx Tetanus, Diphtheria Vaccination/Date Given: Yes Hx Influenza Vaccination/Date Given: No Hx Pneumococcal Vaccination/Date Given: No Immunizations Up to Date: Yes Travel Risk - International Travel Have you traveled outside of the country in past 3 weeks: No - Coronavirus Screening Are you exhibiting any of the following symptoms?: No Close contact with a COVID-19 positive Pt in past 14-21 Days: No - Vaccine Status Have you recieved a Covid-19 vaccination: Yes Supervisor Liquefaction: Hepre[employer] - Vaccination Dates Date of 2cond Vaccination (if applicable): unknown - Review of Systems Constitutional: No Symptoms, No Fever, No Chills Eyes: No Symptoms Ears, Nose, & Throat: No Symptoms Respiratory: No Symptoms, No Cough, No Dyspnea Cardiac: No Symptoms, No Chest Pain, No Edema, No Syncope Abdominal/Gastrointestinal: No Symptoms, No Abdominal Pain, No Nausea, No Vomiting, No Diarrhea Genitourinary Symptoms: No Symptoms, No Dysuria Musculoskeletal: No Symptoms, No Back Pain, No Neck Pain Skin: No Symptoms, No Rash Neurological: No Symptoms, No Dizziness, No Focal Weakness, No Sensory Changes Psychological: No Symptoms Endocrine: No Symptoms Hematologic/Lymphatic: No Symptoms Immunological/Allergic: No Symptoms All Other Systems: Reviewed and Negative - Past Medical History Pertinent Past Medical History: No Neurological History: No Pertinent History ENT History: No Pertinent History Cardiac History: No Pertinent History Respiratory History: No Pertinent History Endocrine Medical History: No Pertinent History Musculoskeletal History: No Pertinent History GI Medical History: No Pertinent History History: No Pertinent History Psycho-Social History: No Pertinent History Female Reproductive Disorders: No Pertinent History - Past Surgical History Past Surgical History: No Neuro Surgical History: No Pertinent History Cardiac: No Pertinent History Respiratory: No Pertinent History Gastrointestinal: No Pertinent History Genitourinary: No Pertinent History Musculoskeletal: No Pertinent History Female Surgical History: No Pertinent History Other Surgical History: dental, tubes in ears, adenoidectomy - Social History Smoking Status: Former smoker Exposure to second hand smoke: Yes Drug Use: none Patient Lives Alone: No - Female History Hx Last Menstrual Period: 01/16/22 Hx Now: Yes - Nursing Vital Signs Nursing Vital Signs: Initial Vital Signs Pulse Rate 88 04/13/22 21:04 Respiratory Rate 16 04/13/22 21:04 Blood Pressure 132/71 04/13/22 21:04 O2 Sat by Pulse Oximetry 98 04/13/22 21:04 Pain Scale Pain Intensity 4 - Physical Exam General Appearance: no apparent distress, alert Eye Exam: PERRL/EOMI, eyes nml inspection Ears, Nose, Throat Exam: normal ENT inspection, TMs normal, pharynx normal, m oist mucous membranes Neck Exam: normal inspection, non-tender, supple, full range of motion Respiratory Exam: normal breath sounds, lungs clear, airway intact, No respiratory distress Cardiovascular Exam: regular rate/rhythm, normal heart sounds, normal peripheral pulses Gastrointestinal/Abdomen Exam: soft, normal bowel sounds, No tenderness, No mass Pelvic Exam: other (White cottage cheese appearing discharge. No adnexal pain or tenderness. Cervical os is closed. Normal external anatomy.) Back Exam: normal inspection, normal range of motion, No CVA tenderness, No vertebral tenderness Extremity Exam: normal inspection, normal range of motion, pelvis stable Neurologic Exam: alert, oriented x 3, cooperative, normal mood/affect, nml cerebellar function, nml station & gait, sensation nml, No motor deficits Skin Exam: normal color, warm, dry, No rash Lymphatic Exam: No adenopathy SpO2 Interpretation: normal SpO2: 98 O2 Delivery: Room Air - Course Nursing assessment & vital signs reviewed: Yes - Radiology Ultrasound Exam OB Ultrasound: discussed w/radiologist (Per aircraft engine installer viable fetus with a heart rate of 163) Ordered Tests: Active Orders 24 hr Category Date Time Status IV Insertion STAT Care 04/13/22 20:47 Active OB LIMITED [US] Stat Exams 04/13/22 22:48 Taken CBC W DIFF Stat Lab 04/13/22 20:47 Completed CMP Stat Lab 04/13/22 20:50 Completed CULTURE,URINE Stat Lab 04/13/22 20:51 Received HCG, Quantitative (Inhouse) Stat Lab 04/13/22 20:50 Completed UA W/RFX CULTURE Stat Lab 04/13/22 20:51 Completed Wet Prep Stat Lab 04/13/22 21:50 Completed Medication Summary Generic Name Dose Route Start Last Admin Trade Name Freq PRN Reason Stop Dose Admin Sodium Chloride 1,000 mls @ 100 mls/hr 04/13/22 21:00 04/13/22 21:01 Sodium Chloride 0.9% 1000 Ml IV 05/13/22 20:59 100 mls/hr .Q10H BONY Administration Discontinued Medications Generic Name Dose Route Start Last Admin Trade Name Freq PRN Reason Stop Dose Admin Nitrofurantoin Macrocrystals 100 mg 04/13/22 22:42 04/13/22 22:46 Nitrofurantoin Macro 100 Mg Capsule PO 04/13/22 22:43 100 mg STAT ONE Administration Nitrofurantoin Macrocrystals Confirm 04/13/22 22:46 Nitrofurantoin Macro 100 Mg Capsule Administered 04/13/22 22:47 Dose 100 mg .ROUTE .Barcoding Lab/Rad Data: Laboratory Result Diagrams 04/13/22 20:47 04/13/22 20:50 Laboratory Results 04/13/22 04/13/22 04/13/22 Range/Units 21:51 21:50 20:51 WBC (4.0-10.5) x10^3/uL RBC (4.1-5.4) x10^6/uL Hgb (12.0-16.0) g/dL Hct (35-47) % MCV (78-100) fL MCH (26-32) pg MCHC (32-36) g/dL RDW (11.5-14.0) % Plt Count (150-450) x10^3/uL MPV (7.5-11.0) fL Gran % (36.0-66.0) % Immature Gran % (Auto) (0.00-0.4) % Nucleat RBC Rel Count (0.00-0.1) % Eos # (Auto) (0-0.5) x10^3/uL Immature Gran # (Auto) (0.00-0.03) x10^3u/L Absolute Lymphs (auto) (1.0-4.6) x10^3/uL Absolute Monos (auto) (0.0-1.3) x10^3/uL Absolute Nucleated RBC (0.00-0.01) x10^3u/L Lymphocytes % (24.0-44.0) % Monocytes % (0.0-12.0) % Eosinophils % (0.00-5.0) % Basophils % (0.0-0.4) % Absolute Granulocytes (1.4-6.9) x10^3/uL Basophils # (0-0.4) x10^3/uL Sodium (137-145) mmol/L Potassium (3.5-5.1) mmol/L Chloride (98-107) mmol/L Carbon Dioxide (22-30) mmol/L Anion Gap (5-15) MEQ/L BUN (7-17) mg/dL Creatinine (0.52-1.04) mg/dL Estimated GFR ML/MIN Glucose (74-106) mg/dL Calcium (8.4-10.2) mg/dL Total Bilirubin (0.2-1.3) mg/dL AST (14-36) U/L ALT (0-35) U/L Alkaline Phosphatase (38-126) U/L Serum Total Protein (6.3-8.2) g/dL Albumin (3.5-5.0) g/dL Beta HCG, Quant mIU/ml Urinalys Dipstick Clnc MAIN LAB Urine Color YELLOW (YELLOW) Urine Appearance CLEAR (CLEAR) Urine pH 6.0 (5-6) Ur Specific [place] 1.025 (1.005-1.025) POC Urine Protein Conf 100 (Negative) Urine Ketones TRACE (NEGATIVE) Urine Nitrite NEGATIVE (NEGATIVE) Urine Bilirubin SMALL (NEGATIVE) Urine Urobilinogen 0.2 (0-1) mg/dL Urine Leukocytes SMALL (NEGATIVE) Urine WBC (Auto) 6-10 (0-5) /HPF Urine RBC (Auto) 0-2 (0-2) /HPF U Epithel Cells (Auto) RARE (FEW) /HPF Urine Bacteria (Auto) RARE (NEGATIVE) /HPF Urine RBC NEGATIVE (0-5) Garcia/ul Calcium Oxalate Crystal 3-5 (NEGATIVE) /HPF Urine Mucus (Auto) SLIGHT (NEGATIVE) /HPF Ur Culture Indicated? YES Urine Glucose NEGATIVE (NEGATIVE) mg/dL WBC (Wet Prep) Many RBC (Wet Prep) Moderate Epi Cells (Wet Prep) Many Bacteria (Wet Prep) Many Clue Cells (Wet Prep) None Seen Trichomonas (Wet Prep) None Seen Budding Yeast (Wet Prp) Moderate Chlamydia DNA Probe NOT DETECTED (NEGATIVE) N.gonorrhoeae DNA Probe NOT DETECTED (NEGATIVE) 04/13/22 04/13/22 04/13/22 Range/Units 20:50 20:50 20:47 WBC 7.2 (4.0-10.5) x10^3/uL RBC 3.43 L (4.1-5.4) x10^6/uL Hgb 10.6 L (12.0-16.0) g/dL Hct 33.1 L (35-47) % MCV 96.5 (78-100) fL MCH 30.9 (26-32) pg MCHC 32.0 (32-36) g/dL RDW 13.1 (11.5-14.0) % Plt Count 176 (150-450) x10^3/uL MPV 11.2 H (7.5-11.0) fL Gran % 65.5 (36.0-66.0) % Immature Gran % (Auto) 0.6 H (0.00-0.4) % Nucleat RBC Rel Count 0.0 (0.00-0.1) % Eos # (Auto) 0.02 (0-0.5) x10^3/uL Immature Gran # (Auto) 0.04 H (0.00-0.03) x10^3u/L Absolute Lymphs (auto) 2.03 (1.0-4.6) x10^3/uL Absolute Monos (auto) 0.37 (0.0-1.3) x10^3/uL Absolute Nucleated RBC 0.00 (0.00-0.01) x10^3u/L Lymphocytes % 28.3 (24.0-44.0) % Monocytes % 5.2 (0.0-12.0) % Eosinophils % 0.3 (0.00-5.0) % Basophils % 0.1 (0.0-0.4) % Absolute Granulocytes 4.71 (1.4-6.9) x10^3/uL Basophils # 0.01 (0-0.4) x10^3/uL Sodium 136 L (137-145) mmol/L Potassium 3.8 (3.5-5.1) mmol/L Chloride 105 (98-107) mmol/L Carbon Dioxide 22 (22-30) mmol/L Anion Gap 12.7 (5-15) MEQ/L BUN 8 (7-17) mg/dL Creatinine 0.62 (0.52-1.04) mg/dL Estimated GFR > 60.0 ML/MIN Glucose 84 (74-106) mg/dL Calcium 8.9 (8.4-10.2) mg/dL Total Bilirubin 0.40 (0.2-1.3) mg/dL AST 17 (14-36) U/L ALT 10 (0-35) U/L Alkaline Phosphatase 55 (38-126) U/L Serum Total Protein 6.8 (6.3-8.2) g/dL Albumin 4.0 (3.5-5.0) g/dL Beta HCG, Quant 49219 mIU/ml Urinalys Dipstick Clnc Urine Color (YELLOW) Urine Appearance (CLEAR) Urine pH (5-6) Ur Specific [place] (1.005-1.025) POC Urine Protein Conf (Negative) Urine Ketones (NEGATIVE) Urine Nitrite (NEGATIVE) Urine Bilirubin (NEGATIVE) Urine Urobilinogen (0-1) mg/dL Urine Leukocytes (NEGATIVE) Urine WBC (Auto) (0-5) /HPF Urine RBC (Auto) (0-2) /HPF U Epithel Cells (Auto) (FEW) /HPF Urine Bacteria (Auto) (NEGATIVE) /HPF Urine RBC (0-5) Garcia/ul Calcium Oxalate Crystal (NEGATIVE) /HPF Urine Mucus (Auto) (NEGATIVE) /HPF Ur Culture Indicated? Urine Glucose (NEGATIVE) mg/dL WBC (Wet Prep) RBC (Wet Prep) Epi Cells (Wet Prep) Bacteria (Wet Prep) Clue Cells (Wet Prep) Trichomonas (Wet Prep) Budding Yeast (Wet Prp) Chlamydia DNA Probe (NEGATIVE) N.gonorrhoeae DNA Probe (NEGATIVE) - Progress Progress: improved Progress Note: Patient reassessed. She feels well. No active cramping in our ED. Ultrasound shows viable fetus with a heart rate of 163. Work-up reveals a urinary tract infection and a yeast infection. Patient received a dose of Macrobid in our ED. A prescription for Macrobid was forwarded to patient's pharmacy. Case discussed with patient's DIGITAL PROGRAM MANAGER physician who agrees with Macrobid however he is requesting Terazol 7 for treatment of the yeast infection. Terazol 7 is to be administered daily for 7 days. Patient is Rh+. No indicati on for RhoGAM Patient agrees to follow-up with her DIGITAL PROGRAM MANAGER physician within 48 hours for evaluation. She voices no other complaints or concerns at this time. Portions of this note were created with voice recognition technology. There may be grammatical, spelling, punctuation or sound alike errors 04/14/22 00:17 Discussed with DrGiovani: Isaura Will see patient in: office Counseled pt/family regarding: lab results, diagnosis, need for follow-up, rad results - Departure Departure Disposition: Observation Clinical Impression: Yeast infection, UTI (urinary tract infection) Condition: Stable Critical Care Time: No Referrals: ALONDRA MADDEN MD [Primary Care Provider] - Follow up/PCP as directed ALPA REYES DO [ACTIVE STAFF] - Follow up/PCP as directed Prescriptions: Nitrofurantoin Macro 100 mg [Macrobid 100MG Capsule] 100 mg PO BID 7 Days #14 cap Terconazole Vaginal 45 gm [Terazol 7 VAGINAL] 45 gm VG DAILY 7 Days #7 units
[2022-04-13] MEDS ORDERED: Sodium Chloride 0.9% 1000 ML 1,000 ML ONE (21:00)
[2022-04-13] MEDS ORDERED: Sodium Chloride 0.9% 1000 ML 1,000 ML IV SCH (21:00)
[2022-04-13 21:02] LABS: Absolute Neutrophil Ct (ANC) 4.71 x10^3/uL (1.4-6.9); Basophil (Absolute #) 0.01 x10^3/uL (0-0.4); Eosinophil % 0.3 % (0.00-5.0); Eosinophil (Absolute #) 0.02 x10^3/uL (0-0.5); Hematocrit 33.1 % (35-47); Hemoglobin 10.6 g/dL (12.0-16.0); Lymphocyte (Absolute #) 2.03 x10^3/uL (1.0-4.6); Lymphocytes % 28.3 % (24.0-44.0); Mean Cell Volume 96.5 fL (78-100); Mean Corpuscular Hemoglobin 30.9 pg (26-32); Mean Platelet Volume 11.2 fL (7.5-11.0); Monocyte (Absolute #) 0.37 x10^3/uL (0.0-1.3); Monocytes % 5.2 % (0.0-12.0); Neutrophil % 65.5 % (36.0-66.0); Platelet Count 176 x10^3/uL (150-450); Red Blood Count 3.43 x10^6/uL (4.1-5.4); Red Cell Distribution Width 13.1 % (11.5-14.0); White Blood Count 7.2 x10^3/uL (4.0-10.5)
[2022-04-13 21:05] VITALS: O2SAT 98
[2022-04-13 21:09] LABS: Bacteria RARE /HPF (NEGATIVE); Epithelial Cells RARE /HPF (FEW); Mucus SLIGHT /HPF (NEGATIVE); RBC 0-2 /HPF (0-2)
[2022-04-13 21:10] LABS: Appearance CLEAR (CLEAR); Bilirubin SMALL (NEGATIVE); Glucose NEGATIVE (NEGATIVE); Ketones TRACE (NEGATIVE); Nitrite NEGATIVE (NEGATIVE); Protein,Urine Dip 100 (Negative); RBC NEGATIVE Ery/ul (0-5); Specific Gravity 1.025 (1.005-1.025); Urine Cultured Indicated? YES; Urobilinogen 0.2 mg/dL (0-1)
[2022-04-13 21:11] LABS: Dipstick done @ ? MAIN LAB
[2022-04-13 21:17] LABS: ALKALINE PHOSPHATASE 55 U/L (38-126); ANION GAP 12.7 MEQ/L (5-15); BLOOD UREA NITROGEN 8 mg/dL (7-17); CHLORIDE 105 mmol/L (98-107); Calcium 8.9 mg/dL (8.4-10.2); Carbon Dioxide 22 mmol/L (22-30); Creatinine 1 0.62 mg/dL (0.52-1.04); EST GLOMERULAR FILTRATION RATE > 60.0 ML/MIN; Glucose 84 mg/dL (74-106); Potassium 3.8 mmol/L (3.5-5.1); SGOT/AST 17 U/L (14-36); SGPT/ALT 10 U/L (0-35); SODIUM 136 mmol/L (137-145); Total Protein 6.8 g/dL (6.3-8.2)
[2022-04-13 22:14] LABS: Bacteria Many; Clue Cells None Seen
[2022-04-13 22:15] LABS: Red Blood Cells Moderate; Trichomonas None Seen; White Blood Cells Many; Yeast Moderate
[2022-04-13] MEDS ORDERED: Macrobid 100MG Capsule PO ONE (22:42)
[2022-04-13] MEDS ORDERED: Macrobid 100MG Capsule ONE (22:46)
[2022-04-13 23:39] LABS: CHLAMYDIA DNA NOT DETECTED (NEGATIVE); GC DNA Probe NOT DETECTED (NEGATIVE)
[2022-04-14 00:25] VITALS: BP 130/79; PULSE 66
--- NOTE | 2022-04-14 08:38 | XRAY ---
Exam: OB ultrasound Limited from 04/13/2022. Comparison: None from this . Indication: Viability. Findings: Transabdominal images reveal a single live intrauterine fetus. Lapoint-rump length measures 6.01 cm consistent with a gestational age of 12 weeks, 4 days plus or -1 week, 1 day yielding an estimated due date of 10/22/2022. This is in reasonable accordance with the gestational age by dates of 10/24/2022. Early formation of the placenta is posterior. The heart rate measures 163 bpm. movement was observed by the neurology technologist. Impression: 1. The Limited OB ultrasound documents viability at this time with a heart rate of 163 bpm. movement was observed by the neurology technologist. The crown-rump length suggests a gestational age of 12 weeks, 4 days. See above.
== END 2022-04-14 00:28 | disposition home or self-care (01) ==
LOC: ED 20:03
DX: O98.811 Other maternal infectious and parasitic diseases complicating pregnancy, first trimester (principal); O23.41 Unspecified infection of urinary tract in pregnancy, first trimester; N39.0 Urinary tract infection, site not specified; B37.49 Other urogenital candidiasis; Z3A.12 12 weeks gestation of pregnancy; R10.2 Pelvic and perineal pain
CPT/HCPCS: 36000; 36415; 76815; 80053; 81015; 84702; 85025; 87086; 87210; 87491; 87591; 99284; A9270-GY

== ENCOUNTER 2022-09-13 11:00 | Observation (INO) | payer OTHER ==
[2022-09-13] MEDS ORDERED: Dulcolax 10 MG SUPP PR ONE (20:41)
[2022-09-13] MEDS ORDERED: Dulcolax 10 MG SUPP ONE (20:42)
[2022-09-13 21:07] LABS: Amphetamine,Urine NEGATIVE (NEGATIVE); Barbiturate,Urine NEGATIVE (NEGATIVE); Benzodiazepine,Urine NEGATIVE (NEGATIVE); Cocaine,Urine NEGATIVE (NEGATIVE); Methadone,Urine NEGATIVE (NEGATIVE); Opiate,Urine NEGATIVE (NEGATIVE); PCP,Urine NEGATIVE (NEGATIVE); THC,Urine NEGATIVE (NEGATIVE)
[2022-09-13] MEDS ORDERED: BRETHINE 1 MG/ML SQ ONE (22:03)
[2022-09-13] MEDS ORDERED: BRETHINE 1 MG/ML ONE (22:06)
[2022-09-13 22:21] VITALS: BP 137/82
[2022-09-13 23:12] VITALS: PULSE 94; O2SAT 98
[2022-09-13 23:30] LABS: Appearance SLIGHTLY CLOUDY (CLEAR); Bilirubin NEGATIVE (NEGATIVE); Glucose NEGATIVE (NEGATIVE); Ketones NEGATIVE (NEGATIVE); Nitrite NEGATIVE (NEGATIVE); Protein,Urine Dip NEGATIVE (Negative); RBC TRACE-INTACT Ery/ul (0-5); Specific Gravity 1.015 (1.005-1.025); Urobilinogen 0.2 mg/dL (0-1)
[2022-09-13 23:44] LABS: Bacteria Moderate /HPF (None Seen); Epithelial Cells Few /HPF (None Seen); RBC 0-2 /HPF (0-5); Urine Cultured Indicated? ORDERED SEPARATELY; WBC 21-50 /HPF (0-5)
== END 2022-09-14 00:56 | disposition home or self-care (01) ==
LOC: WHC 11:00 → UNDOADMOB 19:48 → MED SURG 19:48 → OB 19:49 → UNDODISOB 09-14 00:56
PROVIDERS: ADMIT Obstetrics & Gynecology; ATTEND Obstetrics & Gynecology
DX: Z34.83 Encounter for supervision of other normal pregnancy, third trimester (principal); Z3A.34 34 weeks gestation of pregnancy
CPT/HCPCS: 80307; 81015; 96372; G0378; 59426; 81002; 87086; A9270-GY

== ENCOUNTER 2022-09-17 09:39 | Observation (INO) | payer OTHER ==
[2022-09-17 10:08] VITALS: BP 136/93; PULSE 110
[2022-09-17] MEDS ORDERED: BRETHINE 1 MG/ML SQ ONE (10:27)
[2022-09-17 16:38] LABS: Amphetamine,Urine NEGATIVE (NEGATIVE); Barbiturate,Urine NEGATIVE (NEGATIVE); Benzodiazepine,Urine NEGATIVE (NEGATIVE); Cocaine,Urine NEGATIVE (NEGATIVE); Methadone,Urine NEGATIVE (NEGATIVE); Opiate,Urine NEGATIVE (NEGATIVE); PCP,Urine NEGATIVE (NEGATIVE); THC,Urine NEGATIVE (NEGATIVE)
== END 2022-09-17 12:27 | disposition home or self-care (01) ==
LOC: OB 09:39
PROVIDERS: ADMIT Obstetrics & Gynecology; ATTEND Obstetrics & Gynecology
DX: Z34.83 Encounter for supervision of other normal pregnancy, third trimester (principal); Z3A.34 34 weeks gestation of pregnancy
CPT/HCPCS: 80307; 96372; G0378

== ENCOUNTER 2022-10-04 22:42 | Observation (INO) | payer OTHER ==
[2022-10-04 23:43] VITALS: BP 137/82; O2SAT 100
[2022-10-05 00:05] LABS: Appearance Turbid (Clear); Bilirubin Negative (Negative); Blood Small (Negative); Glucose, Urine Negative (Negative); Ketones Negative (Negative); Leukocyte Esterase Large (Negative); Nitrite Negative (Negative); Protein,Urine Dip Negative (Negative); Specific Gravity 1.005 (1.005-1.030); Urobilinogen 0.2 mg/dL (0.2)
[2022-10-05 00:06] LABS: ADD URINE CULTURE? YES (NO); Bacteria Many /HPF (None Seen); Epithelial Cells Moderate /HPF (None Seen); RBC 0-2 /HPF (0-5)
[2022-10-05 00:28] LABS: Amphetamine,Urine NEGATIVE (NEGATIVE); Barbiturate,Urine NEGATIVE (NEGATIVE); Benzodiazepine,Urine NEGATIVE (NEGATIVE); Cocaine,Urine NEGATIVE (NEGATIVE); Methadone,Urine NEGATIVE (NEGATIVE); Opiate,Urine NEGATIVE (NEGATIVE); PCP,Urine NEGATIVE (NEGATIVE); THC,Urine NEGATIVE (NEGATIVE)
[2022-10-05 00:35] VITALS: PULSE 97
== END 2022-10-05 01:00 | disposition home or self-care (01) ==
LOC: OB 22:42
PROVIDERS: ADMIT Obstetrics & Gynecology; ATTEND Obstetrics & Gynecology
DX: Z34.83 Encounter for supervision of other normal pregnancy, third trimester (principal); Z3A.37 37 weeks gestation of pregnancy
CPT/HCPCS: 80307; 81001; 84112; 87086; G0378

== ENCOUNTER 2022-10-15 20:00 | Inpatient (IN) | payer OTHER ==
[2022-10-15 20:56] LABS: Appearance Turbid (Clear); Bacteria Many /HPF (None Seen); Bilirubin Negative (Negative); Blood Large (Negative); Epithelial Cells Many /HPF (None Seen); Glucose, Urine Negative (Negative); Ketones Negative (Negative); Leukocyte Esterase Large (Negative); Nitrite Negative (Negative); Protein,Urine Dip Trace (Negative); RBC 0-2 /HPF (0-5); Urobilinogen 0.2 mg/dL (0.2); WBC >100 /HPF (0-5)
[2022-10-15 21:04] LABS: Amphetamine,Urine NEGATIVE (NEGATIVE); Barbiturate,Urine NEGATIVE (NEGATIVE); Benzodiazepine,Urine NEGATIVE (NEGATIVE); Cocaine,Urine NEGATIVE (NEGATIVE); Methadone,Urine NEGATIVE (NEGATIVE); Opiate,Urine NEGATIVE (NEGATIVE); PCP,Urine NEGATIVE (NEGATIVE); THC,Urine NEGATIVE (NEGATIVE)
[2022-10-15 21:21] LABS: ADD URINE CULTURE? YES (NO); Budding Yeast Few /HPF (None Seen); Hyaline Casts NONE SEEN /LPF (0-2)
[2022-10-15] MEDS ORDERED: Lactated Ringers 1,000 ML IV ONE ×2 (22:29→22:37)
[2022-10-15] MEDS ORDERED: STADOL 2 MG IV PRN (22:36)
[2022-10-15] MEDS ORDERED: Ambien 10 MG PO ONE (22:37)
[2022-10-15] MEDS ORDERED: Zofran 4 MG/2 ML VIAL IV PRN (22:48)
[2022-10-15 23:01] LABS: Absolute Neutrophil Ct (ANC) 11.25 x10^3/uL (1.4-6.9); BASOPHIL % 0.3 % (0.0-0.4); Basophil (Absolute #) 0.04 x10^3/uL (0-0.4); Eosinophil % 0.6 % (0.00-5.0); Eosinophil (Absolute #) 0.09 x10^3/uL (0-0.5); Hematocrit 33.5 % (35-47); Hemoglobin 10.8 g/dL (12.0-16.0); IMMATURE GRAN # 0.71 x10^3u/L (0.00-0.03); IMMATURE GRAN % 4.6 % (0.00-0.4); Lymphocyte (Absolute #) 2.59 x10^3/uL (1.0-4.6); Lymphocytes % 16.6 % (24.0-44.0); Mean Cell Volume 98.8 fL (78-100); Mean Corpuscular Hemoglobin 31.9 pg (26-32); Mean Corpuscular Hgb Concent. 32.2 g/dL (32-36); Monocyte (Absolute #) 0.89 x10^3/uL (0.0-1.3); Monocytes % 5.7 % (0.0-12.0); Neutrophil % 72.2 % (36.0-66.0); Platelet Count 228 x10^3/uL (150-450); Red Blood Count 3.39 x10^6/uL (4.1-5.4); Red Cell Distribution Width 15.4 % (11.5-14.0); White Blood Count 15.6 x10^3/uL (4.0-10.5)
[2022-10-16 06:44] LABS: ABO TYPING O; Antibody Screen NEGATIVE (NEGATIVE); RH TYPING POSITIVE
[2022-10-16] MEDS ORDERED: Lactated Ringers 1,000 ML IV ONE (07:00)
[2022-10-16] MEDS ORDERED: XYLOCAINE 1% HCL 20 ML MDV IJ PRN (08:00)
[2022-10-16] MEDS ORDERED: Ephedrine Sulfate 50 MG/ML IV PRN (08:00)
[2022-10-16] MEDS ORDERED: FENTANYL 2 MCG-BUPIV 0.125%-NS 250 ML Epidur 250 ML EPIDURAL SCH (08:00)
[2022-10-16] MEDS: TYLENOL EXTRA STRENGTH 500 MG PO PRN (12:54)
[2022-10-16] MEDS: Lactated Ringers 1,000 ML IV SCH ×3 (19:46→22:58)
[2022-10-17] MEDS: Lactated Ringers 1,000 ML IV SCH ×2 (04:04→21:41)
[2022-10-17] MEDS ORDERED: PITOCIN 30 UNITS/ LR 500 ML 30 UNITS/500 ML PLAST..BAG IV SCH (08:00)
[2022-10-17] MEDS ORDERED: Mylicon 80MG PO PRN (08:00)
[2022-10-17] MEDS ORDERED: BRETHINE 1 MG/ML SQ PRN (08:00)
[2022-10-17] MEDS ORDERED: Dermoplast Spray TP PRN (08:00)
[2022-10-17] MEDS ORDERED: Anucort-HC SUPPOSITORY PR PRN (08:00)
[2022-10-17] MEDS ORDERED: LANSINOH 40 GM TOP PRN (08:00)
[2022-10-17] MEDS ORDERED: TUCKS TP PRN (08:00)
[2022-10-17] MEDS ORDERED: Dulcolax 10 MG SUPP PR PRN (08:00)
[2022-10-17] MEDS ORDERED: CORTISONE 1% CREAM TP PRN (08:00)
[2022-10-17 09:44] LABS: HBsAg Screen Negative (Negative)
[2022-10-17] MEDS: TYLENOL EXTRA STRENGTH 500 MG PO PRN (10:36)
[2022-10-17 10:51] LABS: Appearance Clear (Clear); Bacteria None Seen /HPF (None Seen); Bilirubin Negative (Negative); Blood Small (Negative); Epithelial Cells Few /HPF (None Seen); Glucose, Urine Negative (Negative); Hyaline Casts NONE SEEN /LPF (0-2); Ketones Trace (Negative); Leukocyte Esterase Moderate (Negative); Nitrite Negative (Negative); Ph 7.5 (4.6-8.0); Protein,Urine Dip Negative (Negative); RBC 0-2 /HPF (0-5); Urobilinogen 0.2 mg/dL (0.2)
[2022-10-17 10:52] LABS: ADD URINE CULTURE? ORDERED SEPARATELY (NO)
[2022-10-17] MEDS ORDERED: Zithromax 500 MG/ 250 ML NaCl Premix 500 MG/250 ML IVPB IV ONE (13:57)
[2022-10-17] MEDS ORDERED: Reglan 10 MG/2 ML IV SCH (14:00)
[2022-10-17] MEDS ORDERED: Pepcid 20 MG VIAL IV SCH (14:00)
[2022-10-17] MEDS ORDERED: SOD CITRATE-CITRIC ACID SOLN PO SCH (14:00)
[2022-10-17] MEDS ORDERED: CLINDAMYCIN-D5W 900 MG/50 ML*** 900 MG/50 ML BAG IV STA (14:01)
[2022-10-17] MEDS ORDERED: XYLOCAINE 2%/Epi 1:200000 20ML VIAL MPF ONE (14:08)
[2022-10-17] MEDS ORDERED: PHENYLEPHRINE HCL ONE (14:09)
[2022-10-17] MEDS ORDERED: Pitocin 10 UNITS/ML ONE (14:09)
[2022-10-17] MEDS ORDERED: SUBLIMAZE 100 MCG/2 ML ONE ×2 (14:13→15:27)
[2022-10-17] MEDS ORDERED: Lactated Ringers 1,000 ML IV ONE ×2 (14:16→14:53)
[2022-10-17] MEDS ORDERED: Sensorcaine 0.25% 10 ML ONE (14:16)
[2022-10-17] MEDS ORDERED: OFIRMEV 100 ML IV ONE (14:16)
[2022-10-17] MEDS ORDERED: EXPAREL 133 MG/10 ML VIAL IJ ONE (14:26)
[2022-10-17] MEDS ORDERED: Astramorph-Pf 5 MG/10 ML ONE (14:32)
[2022-10-17 14:34] LABS: Hematocrit 31.9 % (35-47); Mean Cell Volume 99.7 fL (78-100); Mean Corpuscular Hemoglobin 31.3 pg (26-32); Mean Corpuscular Hgb Concent. 31.3 g/dL (32-36); Mean Platelet Volume 9.9 fL (7.5-11.0); Platelet Count 221 x10^3/uL (150-450); Red Cell Distribution Width 15.7 % (11.5-14.0); White Blood Count 15.4 x10^3/uL (4.0-10.5)
[2022-10-17 14:40] LABS: INR 0.89 (0.8-3.0); PROTIME 9.8 SECONDS (9.4-12.5); PTT 25.8 SECONDS (25.1-36.5)
[2022-10-17] MEDS ORDERED: Zithromax 500 MG/ 250 ML NaCl Premix 500 MG/250 ML IVPB IV SCH (14:45)
[2022-10-17] MEDS ORDERED: Zofran 4 MG/2 ML VIAL ONE (15:20)
[2022-10-17] MEDS ORDERED: MORPHINE SULFATE 2 MG INJ IV PRN (17:35)
[2022-10-17] MEDS ORDERED: HOLD NARCOTIC ANALGESICS AND SEDATIVES X24 HR MC PRN (17:35)
[2022-10-17] MEDS ORDERED: BENADRYL 50 MG/ML IV PRN (17:35)
[2022-10-17] MEDS ORDERED: DEMEROL 50 MG IV PRN (17:35)
[2022-10-17] MEDS ORDERED: Nubain 10 MG/ML IV PRN (17:35)
[2022-10-17] MEDS ORDERED: CLARITIN 10 MG PO PRN (17:35)
[2022-10-17] MEDS ORDERED: Narcan 0.4 MG/ML IV PRN (17:39)
[2022-10-17] MEDS ORDERED: PERCOCET TABLET 5/325MG PO PRN (17:41)
[2022-10-17] MEDS ORDERED: Dextrose 5%-Lr IV Solution 1000 ML 1,000 ML IV SCH (18:00)
[2022-10-17] MEDS: CLINDAMYCIN-D5W 900 MG/50 ML*** 900 MG/50 ML BAG IV SCH ×4 (21:39→23:58)
[2022-10-17] MEDS: PITOCIN 30 UNITS/ LR 500 ML 30 UNITS/500 ML PLAST..BAG IV SCH (21:39)
[2022-10-17] MEDS: Docusate Sodium 100 MG PO SCH (22:10)
[2022-10-17] MEDS ORDERED: Sodium Chloride 0.9% 100 ML ONE (23:53)
[2022-10-17] MEDS ORDERED: Sodium Chloride 0.9% 100 ML IV ONE (23:55)
[2022-10-18 06:17] LABS: BASOPHIL % 0.2 % (0.0-0.4); Basophil (Absolute #) 0.02 x10^3/uL (0-0.4); Eosinophil % 0.2 % (0.00-5.0); Eosinophil (Absolute #) 0.03 x10^3/uL (0-0.5); Hematocrit 24.2 % (35-47); Hemoglobin 7.7 g/dL (12.0-16.0); IMMATURE GRAN # 0.33 x10^3u/L (0.00-0.03); IMMATURE GRAN % 2.7 % (0.00-0.4); Lymphocyte (Absolute #) 1.71 x10^3/uL (1.0-4.6); Mean Corpuscular Hemoglobin 31.8 pg (26-32); Mean Corpuscular Hgb Concent. 31.8 g/dL (32-36); Mean Platelet Volume 9.6 fL (7.5-11.0); Monocyte (Absolute #) 0.75 x10^3/uL (0.0-1.3); Monocytes % 6.1 % (0.0-12.0); Neutrophil % 76.8 % (36.0-66.0); Platelet Count 166 x10^3/uL (150-450); Red Blood Count 2.42 x10^6/uL (4.1-5.4); Red Cell Distribution Width 15.7 % (11.5-14.0); White Blood Count 12.2 x10^3/uL (4.0-10.5)
[2022-10-18] MEDS: CLINDAMYCIN-D5W 900 MG/50 ML*** 900 MG/50 ML BAG IV SCH (08:42)
--- NOTE | 2022-10-18 09:08 | PCM.NOTE ---
Date and Time: 10/18/22905 Subjective Assessment: pod 1 pt resting in bed and doing well. pt tolerating diet. vss afebrile abd; soft incision c/d/intact uterus; firm lochia; mild hgb; 7.7 a/p sp csection pod 1 appears stable will anticipate discharge tomorrow OBJECTIVE DATA Vital Signs: Vital Signs - 24 hr Temp Pulse Resp BP BP Pulse Ox 10/18/22 06:38 97 10/18/22 06:00 98 10/18/22 05:00 95 10/18/22 04:00 98.5 F 98 H 17 116/59 96 10/18/22 03:00 96 10/18/22 02:00 96 10/18/22 01:00 96 10/18/22 00:00 98.9 F 107 H 19 121/63 99 10/17/22 23:00 98 10/17/22 22:00 97 10/17/22 21:00 98 10/17/22 20:00 98.6 F 104 H 19 127/68 100 10/17/22 18:45 98.7 F 100 H 18 122/59 98 10/17/22 18:15 98.7 F 103 H 18 132/63 99 10/17/22 17:45 98.7 F 108 H 18 128/65 98 10/17/22 17:30 98.7 F 91 H 18 122/61 98 10/17/22 17:15 98.7 F 100 H 20 124/69 99 10/17/22 17:00 98.7 F 102 H 20 123/67 99 10/17/22 16:45 98.7 F 102 H 18 123/67 99 10/17/22 14:47 98.7 F 100 H 18 98 10/17/22 14:15 98.7 F 98 H 18 135/70 98 10/17/22 14:06 97.5 F 82 20 111/56 99 10/17/22 13:45 98.7 F 100 H 18 144/77 98 10/17/22 13:30 97.5 F 82 20 108/57 99 10/17/22 13:15 97.5 F 77 20 110/61 99 10/17/22 13:00 97.5 F 88 20 113/70 99 10/17/22 12:45 97.5 F 83 20 112/66 99 10/17/22 12:30 97.5 F 84 20 114/63 99 10/17/22 12:15 97.5 F 88 20 105/59 99 10/17/22 12:00 97.5 F 83 20 111/56 111/56 99 10/17/22 11:45 97.5 F 82 20 108/53 99 10/17/22 11:30 97.5 F 81 20 107/54 99 10/17/22 11:15 97.5 F 90 20 111/59 99 10/17/22 11:00 97.5 F 81 20 113/56 99 10/17/22 10:45 97.5 F 81 20 113/56 99 10/17/22 10:30 97.5 F 82 20 112/58 99 10/17/22 10:15 97.5 F 110 H 20 109/61 99 10/17/22 10:00 97.5 F 81 20 113/56 99 10/17/22 09:45 97.5 F 81 20 113/56 99 10/17/22 09:30 97.5 F 81 20 113/56 99 10/17/22 09:15 97.5 F 95 H 20 114/65 99 Pain Assessment - Last Documented Pain Intensity [Anterior/ 2 Posterior] Pain Intensity 1 Pain Scale Used 0-10 Pain Scale Intake and Output: Intake & Output 10/15/22 10/16/22 10/17/22 10/18/22 11:59 11:59 11:59 11:59 Intake Total 1500 9670 1551 Output Total 350 3091 Balance 1500 9320 -1540 Weight 97.522 kg 97.522 kg Lab Results: Lab Results-Last 24 Hours 10/15/22 10/17/22 10/17/22 Range/Units 22:58 10:41 14:15 WBC 15.4 H (4.0-10.5) x10^3/uL RBC 3.20 L (4.1-5.4) x10^6/uL Hgb 10.0 L (12.0-16.0) g/dL Hct 31.9 L (35-47) % MCV 99.7 (78-100) fL MCH 31.3 (26-32) pg MCHC 31.3 L (32-36) g/dL RDW 15.7 H (11.5-14.0) % Plt Count 221 (150-450) x10^3/uL MPV 9.9 (7.5-11.0) fL Gran % (36.0-66.0) % Immature Gran % (Auto) (0.00-0.4) % Nucleat RBC Rel Count (0.00-0.1) % Eos # (Auto) (0-0.5) x10^3/uL Immature Gran # (Auto) (0.00-0.03) x10^3u/L Absolute Lymphs (auto) (1.0-4.6) x10^3/uL Absolute Monos (auto) (0.0-1.3) x10^3/uL Absolute Nucleated RBC (0.00-0.01) x10^3u/L Lymphocytes % (24.0-44.0) % Monocytes % (0.0-12.0) % Eosinophils % (0.00-5.0) % Basophils % (0.0-0.4) % Absolute Granulocytes (1.4-6.9) x10^3/uL Basophils # (0-0.4) x10^3/uL PT (9.4-12.5) SECONDS INR (0.8-3.0) APTT (25.1-36.5) SECONDS Urine Color Yellow (Yellow) Urine Appearance Clear (Clear) Urine pH 7.5 (4.6-8.0) Ur Specific [place] 1.010 (1.005-1.030) Urine Protein Negative (Negative) Urine Glucose (UA) Negative (Negative) mg/dL Urine Ketones Trace A (Negative) Urine Blood Small A (Negative) Urine Nitrite Negative (Negative) Urine Bilirubin Negative (Negative) Urine Urobilinogen 0.2 (0.2) mg/dL Ur Leukocyte Esterase Moderate A (Negative) U Hyaline Cast (Auto) NONE SEEN (0-2) /LPF Urine Microscopic RBC 0-2 (0-5) /HPF Urine Microscopic WBC 6-10 A (0-5) /HPF Ur Epithelial Cells Few (None Seen) /HPF Urine Bacteria None Seen (None Seen) /HPF Urine Culture Reflexed ORDERED SEPARATELY (NO) Hep Bs Antigen Negative (Negative) 10/17/22 10/18/22 Range/Units 14:15 06:17 WBC 12.2 H (4.0-10.5) x10^3/uL RBC 2.42 L (4.1-5.4) x10^6/uL Hgb 7.7 L D (12.0-16.0) g/dL Hct 24.2 L (35-47) % MCV 100.0 (78-100) fL MCH 31.8 (26-32) pg MCHC 31.8 L (32-36) g/dL RDW 15.7 H (11.5-14.0) % Plt Count 166 (150-450) x10^3/uL MPV 9.6 (7.5-11.0) fL Gran % 76.8 H (36.0-66.0) % Immature Gran % (Auto) 2.7 H (0.00-0.4) % Nucleat RBC Rel Count 0.0 (0.00-0.1) % Eos # (Auto) 0.03 (0-0.5) x10^3/uL Immature Gran # (Auto) 0.33 H (0.00-0.03) x10^3u/L Absolute Lymphs (auto) 1.71 (1.0-4.6) x10^3/uL Absolute Monos (auto) 0.75 (0.0-1.3) x10^3/uL Absolute Nucleated RBC 0.00 (0.00-0.01) x10^3u/L Lymphocytes % 14.0 L (24.0-44.0) % Monocytes % 6.1 (0.0-12.0) % Eosinophils % 0.2 (0.00-5.0) % Basophils % 0.2 (0.0-0.4) % Absolute Granulocytes 9.40 H (1.4-6.9) x10^3/uL Basophils # 0.02 (0-0.4) x10^3/uL PT 9.8 (9.4-12.5) SECONDS INR 0.89 (0.8-3.0) APTT 25.8 (25.1-36.5) SECONDS Urine Color (Yellow) Urine Appearance (Clear) Urine pH (4.6-8.0) Ur Specific [place] (1.005-1.030) Urine Protein (Negative) Urine Glucose (UA) (Negative) mg/dL Urine Ketones (Negative) Urine Blood (Negative) Urine Nitrite (Negative) Urine Bilirubin (Negative) Urine Urobilinogen (0.2) mg/dL Ur Leukocyte Esterase (Negative) U Hyaline Cast (Auto) (0-2) /LPF Urine Microscopic RBC (0-5) /HPF Urine Microscopic WBC (0-5) /HPF Ur Epithelial Cells (None Seen) /HPF Urine Bacteria (None Seen) /HPF Urine Culture Reflexed (NO) Hep Bs Antigen (Negative) Multi-Disciplinary Progress Notes: Multi-Disciplinary Progress Notes 10/17/22 15:14 (created 10/17/22 15:58) Respiratory Note by Aide Yarbrough Baby born via . Baby crying upon delivery and brought to warmer and dried and stimulated. No respiratory interventions needed. Initialized on 10/17/22 15:58 - END OF NOTE Assessment/Plan (1) delivery delivered Current Visit: Yes Status: Acute Code(s): O82 - ENCOUNTER FOR DELIVERY WITHOUT INDICATION (2) Arrest of descent, delivered, current hospitalization Current Visit: Yes Status: Acute Code(s): O62.1 - SECONDARY UTERINE INERTIA (3) Arrest of dilation, delivered, current hospitalization Current Visit: Yes Status: Acute Code(s): O62.1 - SECONDARY UTERINE INERTIA
[2022-10-18] MEDS ORDERED: Adacel Vial IM ONE (10:00)
[2022-10-18] MEDS ORDERED: ENOXAPARIN SODIUM SQ ONE (10:00)
[2022-10-18] MEDS: Docusate Sodium 100 MG PO SCH ×2 (10:37→19:42)
[2022-10-18] MEDS: FERREX 150 PO SCH (10:37)
--- NOTE | 2022-10-18 14:00 | OP ---
SURGERY DATE/TIME: 10/17/2022 1456 PREOPERATIVE DIAGNOSIS: Intrauterine at 39 weeks gestation with arrest of descent and dilatation. POSTOPERATIVE DIAGNOSIS: Intrauterine at 39 weeks gestation with arrest of descent and dilatation. PROCEDURE: Primary section, low flap transverse uterine incision, Pfannenstiel skin incision. SURGEON: Mandeep Hodge D.O. PHARMACY PICKING TECHNICIAN: Alee Holley, surgical technicians. ANESTHESIA: Epidural. ESTIMATED BLOOD LOSS: Approximately 700 cc. COMPLICATIONS: None. INDICATIONS: The risks, benefits, indications and alternatives of the procedure were reviewed with the patient prior to procedure. The patient understood the risk of infection, bleeding, bowel injury, bladder injury, pelvic infection and thromboembolic disorder associated with the surgery and desires to have this surgery as a possible means to alleviate her current medical condition. DESCRIPTION OF PROCEDURE AND FINDINGS: At this point the patient is taken to the operating room where her epidural anesthesia was found to be adequate. She was then prepared and draped in normal sterile fashion in the dorsal supine position with leftward tilt. A Pfannenstiel skin incision is made with a scalpel and carried through to the underlying layer of the fascia with a Bovie. The fascia was then incised in the midline and the incision extended laterally with Silva scissors. The superior aspect of the fascial incision was then grasped Martín clamps elevated and the underlying rectus muscles dissected off bluntly. Attention is then turned to the inferior aspect of this incision which in similar fashion was grasped, tented up with Martín clamps and the rectus muscles dissected off bluntly. The rectus muscles were then at the midline and the peritoneum identified, tented up and entered sharply with Metzenbaum scissors. The peritoneal incision was then extended superiorly and inferiorly with good visualization of the bladder. From this point an Efrain retractor was placed in through the incision as a means to have complete retraction for excellent position in the lower pelvic region. From this point transverse incision was made lower uterine segment and extended laterally with bandage scissors. From this point the infant's head was delivered atraumatically and the nose and mouth were suctioned with bulb suction and the cord clamped and cut. The infant was then handed off to the awaiting nurses. The placenta was then removed manually. The uterus exteriorized and cleared of all clots and debris. The uterine incision was repaired with 1-0 chromic in a running locked fashion. A second layer of the same suture was used to obtain excellent hemostasis. From this point the uterus is then returned to the abdomen. The gutters were cleared of clots and the Efrain retractor was removed at this time. The peritoneal muscles were closed in interrupted fashion using 2-0 chromic suture. The fascia was re-approximated with 0 Vicryl in a running fashion. The subcutaneous layer was closed with 3-0 Vicryl suture and the skin was closed with absorbable yuriy called INSORB. The patient tolerated the procedure well. Sponge, lap, needle and instrument counts were correct x2. The patient was then taken to the recovery room in stable condition. The patient delivered a live baby boy at 1514 hours. 's were 9 at 1 minute and 9 at 5 minutes. The weight of the baby was 8 pounds 4 ounces.
[2022-10-18 18:03] VITALS: O2SAT 94
[2022-10-18] MEDS: MOTRIN 400 MG PO PRN (19:42)
[2022-10-18] MEDS: TYLENOL EXTRA STRENGTH 500 MG PO PRN (23:54)
[2022-10-19] MEDS: MOTRIN 400 MG PO PRN ×2 (03:53→09:45)
[2022-10-19] MEDS: TYLENOL EXTRA STRENGTH 500 MG PO PRN ×2 (06:26→12:23)
--- NOTE | 2022-10-19 07:58 | PCM.NOTE ---
Date and Time: 10/19/22 0757 Subjective Assessment: pod 2 sp csection pt resting in bed ambulating and tolerating diet. vss afebrile abd; soft incision c/d/intact uterus; firm lochia; mild hgb; 7.7 a/p sp csection pod 2 dc home today fu office in 2 wks OBJECTIVE DATA Vital Signs: Vital Signs - 24 hr Temp Pulse Resp BP Pulse Ox 10/19/22 04:34 98.0 F 94 H 18 116/73 10/19/22 01:31 98.4 F 90 20 117/76 10/18/22 20:24 98.8 F 112 H 18 126/77 10/18/22 20:00 98.4 F 101 H 18 128/76 94 L 10/18/22 14:00 98.4 F 101 H 18 128/76 94 L 10/18/22 13:00 100 10/18/22 12:00 99 10/18/22 11:00 100 10/18/22 10:00 100 10/18/22 09:00 95 10/18/22 08:00 97.5 F 94 H 17 109/57 96 Pain Assessment - Last Documented Pain Intensity [Anterior/ 6 Posterior] Pain Intensity 4 Pain Scale Used 0-10 Pain Scale Intake and Output: Intake & Output 10/16/22 10/17/22 10/18/22 10/19/22 11:59 11:59 11:59 11:59 Intake Total 1500 9670 1551 940 Output Total 350 3091 1000 Balance 1500 9320 -1540 -60 Weight 97.522 kg 97.522 kg Lab Results: Lab Results-Last 24 Hours 10/18/22 Range/Units 05:00 Calcium 8.0 L (8.4-10.2) mg/dL Assessment/Plan (1) delivery delivered Current Visit: Yes Status: Acute Code(s): O82 - ENCOUNTER FOR DELIVERY WITHOUT INDICATION (2) Arrest of descent, delivered, current hospitalization Current Visit: Yes Status: Acute Code(s): O62.1 - SECONDARY UTERINE INERTIA (3) Arrest of dilation, delivered, current hospitalization Current Visit: Yes Status: Acute Code(s): O62.1 - SECONDARY UTERINE INERTIA
--- NOTE | 2022-10-19 08:03 | PCM.DS ---
Discharge Summary Date of Admission: 10/17/22 10:56 Admitting Physician: ALPA REYES DO Consults: Consults on Case 10/16/22 08:00 Notify Anesthesia Provider PRN 10/17/22 08:00 Notify Physician ROUTINE 10/17/22 13:54 Notify Anesthesia Provider ROUTINE 10/17/22 17:35 Notify Anesthesia Provider PRN 10/17/22 18:24 Navigation ONCE Primary Care Provider: MARYANNE,ALONDRA Allergies Allergies amoxicillin trihydrate [From Augmentin] Allergy (Verified 10/15/22 20:17) Shortness of Breath latex Allergy (Verified 10/15/22 20:17) Rash potassium clavulanate [From Augmentin] Allergy (Verified 10/15/22 20:17) Shortness of Breath Hospital Summary - Hospital Course Hospital Course: pt was admitted on oct 16 who was 39 wks and was noted to being in early labor and where cytotec was started at 5 pm and subsequently started on pitocin on oct 17 with arom and had epidural. pt had iupc and electrode placed at time of arom and after approximately 7 hrs of labor pt was noted having an arrest disorder at 5 cm. pt was then taken for primary csection and delivered live baby boy without complication. during postop period did very well was able to ambulate and tolerate diet and had stable hgb level at 7.7. during csection pt did have chromosomal microanalysis done for baby and was sent to lab. at this time pt is stable for discharge and was given rx for norco for pain management. pt advised to fu in office in 2 wks for postop care. all questions answered to her satisfaction. - Vitals & Intake/Output Vital Signs: Vital Signs Temperature 98.0 F 10/19/22 04:34 Pulse Rate 94 H 10/19/22 04:34 Respiratory Rate 18 10/19/22 04:34 Blood Pressure 116/73 10/19/22 04:34 O2 Sat by Pulse Oximetry 94 L 10/18/22 20:00 Intake & Output: Intake & Output 10/16/22 10/17/22 10/18/22 10/19/22 11:59 11:59 11:59 11:59 Intake Total 1500 9670 1551 940 Output Total 350 3091 1000 Balance 1500 9320 -1540 -60 Weight 97.522 kg 97.522 kg - Lab Result Diagrams: 10/18/22 06:17 Lab Results-Last 24 Hrs: Lab Results-Last 24 Hours 10/18/22 Range/Units 05:00 Calcium 8.0 L (8.4-10.2) mg/dL Micro Results-Entire Visit: Microbiology 10/17/22 10:43 Urine Culture - Final Catherized NO GROWTH 10/15/22 20:34 Urine Culture - Final Clean Catch Midstream MIXED NEHAL; 3 OR MORE TYPES. NO PREDOMINANT ORGANISM. NO FURTHER WORKUP. PLEASE RESUBMIT IF CLINICALLY INDICATED. - Procedures and Test Procedures and Tests throughout Hospitalization: Therapy Orders & Screens 10/17/22 15:59 Standby STAT Comment: Diagnosis: IUP, R/O LABOR Final Diagnosis/Problem List - Final Discharge Diagnosis/Problem (1) delivery delivered Current Visit: Yes Status: Acute Code(s): O82 - ENCOUNTER FOR DELIVERY WITHOUT INDICATION (2) Arrest of descent, delivered, current hospitalization Current Visit: Yes Status: Acute Code(s): O62.1 - SECONDARY UTERINE INERTIA (3) Arrest of dilation, delivered, current hospitalization Current Visit: Yes Status: Acute Code(s): O62.1 - SECONDARY UTERINE INERTIA - Discharge Disposition: Home, Self-Care Condition: Stable Prescriptions: New Ferric Maltol [Accrufer] 30 mg PO BIDWM #60 cap Hydrocodone/Acetaminophen [Hydrocodone-Acetamin 5-325 mg] 1 tab PO Q6HPRN PRN #28 tablet MDD 4 PRN Reason: Pain Ibuprofen 800 mg PO Q8H PRN PRN 30 Days #42 tablet MDD 3 PRN Reason: Pain Continue Ferrous Sulfate 325 mg PO BID No Action diphenhydrAMINE HCL [Benadryl] 25 mg PO HS Guaifenesin [Mucinex] 600 mg PO BID Mv-Mn/Iron/FA/Herbal/Digestive [ One Tablet] 1 each PO DAILY Follow up with: ALONDRA MADDEN MD [Primary Care Provider] - ALPA REYES DO [ACTIVE STAFF] - 2 weeks (keep incision clean and dry no heavy lifting )
[2022-10-19] MEDS: Docusate Sodium 100 MG PO SCH (09:45)
[2022-10-19] MEDS: FERREX 150 PO SCH (09:45)
[2022-10-19 17:13] VITALS: BP 138/67; PULSE 100
[2022-10-19] MEDS ORDERED: M-M-R II Vaccine With Diluent SQ ONE (17:30)
== END 2022-10-19 18:45 | disposition home or self-care (01) | DRG 788 ==
LOC: OB 20:00 → UNDOADMOB 20:00 → OB 10-17 08:38 → INTOOBSV 10-17 10:56 → OBSVTOIN 10-17 10:56
PROVIDERS: ADMIT Obstetrics & Gynecology; ATTEND Obstetrics & Gynecology
PROC: 10D00Z1 Extraction of Products of Conception, Low, Open Approach (ICD-10-PCS; principal; 2022-10-17)
DX: O62.1 Secondary uterine inertia (principal); Z3A.39 39 weeks gestation of pregnancy; Z37.0 Single live birth; Z20.828 Contact with and (suspected) exposure to other viral communicable diseases
CPT/HCPCS: 36415; 59025; 62322; 64488; 76937; 76942; 80307; 81001; 82310; 85025; 85027; 85610; 85730; 86850; 86900; 86901; 87086; 87340; 90472; 90707; 90715; 94799; 99140; 99213; G0378; J0456; J0595; J1650; J2274; J2370; J2405; J2590; J3010; L0625; A9270-GY

== ENCOUNTER 2024-10-19 16:28 | Emergency (ER) | payer OTHER ==
--- NOTE | 2024-10-19 16:31 | ERPHSYRPT ---
- History of Present Illness Time Seen by Provider: 10/19/24 16:30 Historian: patient Exam Limitations: no limitations Physician History: This is a 24-year-old overweight white female patient who presents to the emergency department with family by private vehicle because of symptoms of rapid heart rate and chest pain. She describes the chest pain as midsternal central without radiation. She had the chest pain last evening and thought it would go away. However this morning the rapid heart rate and chest pain persisted. She went to see her primary care provider who sent her to the emergency department for further evaluation and management. Patient has a history of DiGeorge syndrome. Patient has no known documented coronary artery disease. She has no known clotting or bleeding disorders. Timing/Duration: yesterday Activities at Onset: none Quality: dullness, pressure Location: substernal, central Chest Pain Radiation: no radiation Severity of Pain-Max: mild Severity of Pain-Current: mild Associated Symptoms: denies symptoms Prior Chest Pain/Cardiac Workup: no prior chest pain, no prior cardiac workup Nitro Today/Relief: no nitro taken today Aspirin Treatment Today: 81 mg x 4, provided by ED Allergies/Adverse Reactions: amoxicillin trihydrate [From Augmentin] Allergy (Verified 10/19/24 16:38) Shortness of Breath latex Allergy (Verified 10/19/24 16:38) Rash potassium clavulanate [From Augmentin] Allergy (Verified 10/19/24 16:38) Shortness of Breath Home Medications: Amitriptyline HCl 25 mg [Amitriptyline 25 mg Tablet] 25 mg PO HS 10/19/24 [History] Fluoxetine HCl 10 mg [Prozac 10 mg] 10 mg PO DAILY 10/19/24 [History] Rimegepant Sulfate [Nurtec Odt] 75 mg SL UD PRN 10/19/24 [History] Hx Tetanus, Diphtheria Vaccination/Date Given: Yes Hx Influenza Vaccination/Date Given: No Hx Pneumococcal Vaccination/Date Given: No Travel Risk - International Travel Have you traveled outside of the country in past 3 weeks: No - Emerging Infectious Disease Are you exhibiting symptoms associated with any current EIDs: No - Review of Systems Constitutional: No Symptoms Eyes: No Symptoms Ears, Nose, & Throat: No Symptoms Respiratory: No Symptoms Cardiac: Chest Pain, Palpitations Abdominal/Gastrointestinal: No Symptoms Genitourinary Symptoms: No Symptoms Musculoskeletal: No Symptoms Skin: No Symptoms Neurological: No Symptoms Psychological: No Symptoms Endocrine: No Symptoms Hematologic/Lymphatic: No Symptoms Immunological/Allergic: No Symptoms All Other Systems: Reviewed and Negative - Past Medical History Pertinent Past Medical History: No Neurological History: No Pertinent History ENT History: No Pertinent History Cardiac History: No Pertinent History Respiratory History: No Pertinent History Endocrine Medical History: No Pertinent History Musculoskeletal History: No Pertinent History GI Medical History: No Pertinent History History: No Pertinent History Psycho-Social History: No Pertinent History Female Reproductive Disorders: No Pertinent History Other Medical History: 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 - Past Surgical History Past Surgical History: Yes Neuro Surgical History: No Pertinent History Cardiac: No Pertinent History Respiratory: No Pertinent History Gastrointestinal: No Pertinent History Genitourinary: No Pertinent History Musculoskeletal: No Pertinent History Female Surgical History: No Pertinent History Other Surgical History: dental, tubes in ears, adenoidectomy - Female History Hx Last Menstrual Period: May 2013 - Social History Smoking Status: Former smoker How long have you smoked: 2 yrs Exposure to second hand smoke: Yes Drug Use: none - Nursing Vital Signs Nursing Vital Signs: Initial Vital Signs Temperature 98.8 F 10/19/24 16:30 Pulse Rate 121 H 10/19/24 16:30 Respiratory Rate 22 10/19/24 16:30 Blood Pressure 126/86 10/19/24 16:30 O2 Sat by Pulse Oximetry 99 10/19/24 16:30 Pain Scale Pain Intensity 4 - Physical Exam General Appearance: no apparent distress, alert, anxiety, obese Eye Exam: PERRL/EOMI, eyes nml inspection Ears, Nose, Throat Exam: normal ENT inspection, moist mucous membranes Neck Exam: normal inspection, non-tender, supple, full range of motion Respiratory Exam: normal breath sounds, chest tenderness, lungs clear, airway intact, No respiratory distress Cardiovascular Exam: tachycardia Gastrointestinal/Abdomen Exam: soft, normal bowel sounds, No tenderness Pelvic Exam: not done Rectal Exam: not done Back Exam: normal inspection, normal range of motion, No CVA tenderness, No vertebral tenderness Extremity Exam: normal inspection, normal range of motion, pelvis stable Neurologic Exam: alert, oriented x 3, cooperative, title clerk II-XII nml as tested, nml cerebellar function, nml station & gait, sensation nml Skin Exam: normal color, warm, dry Lymphatic Exam: No adenopathy SpO2 Interpretation: normal O2 Delivery: Room Air - Course Nursing assessment & vital signs reviewed: Yes EKG Interpreted by Me: RATE (135), Sinus Tach, NORMAL AXIS, NORMAL INTERVALS, NORMAL QRS, NORMAL ST-T, Other (No acute ischemia on today's twelve-lead EKG) Ordered Tests: Active Orders 24 hr Category Date Time Status Speech Correction Assistant STAT Care 10/19/24 16:50 Active EKG-ER Only STAT Care 10/19/24 16:50 Active IV Insertion STAT Care 10/19/24 16:50 Active Pulse Oximetry (ED) STAT Care 10/19/24 16:50 Active CHEST 1 VIEW (PORTABLE) Stat Exams 10/19/24 16:50 Taken CBC W DIFF Stat Lab 10/19/24 Completed CMP Stat Lab 10/19/24 Completed D-DIMER QUANTITATIVE Stat Lab 10/19/24 Completed TROPONIN Q4H Lab 10/19/24 Completed TROPONIN Q4H Lab 10/19/24 21:00 Ordered TROPONIN Q4H Lab 10/20/24 01:00 Ordered Medication Summary Discontinued Medications Generic Name Dose Route Start Last Admin Trade Name Freq PRN Reason Stop Dose Admin Aspirin 324 mg 10/19/24 16:50 10/19/24 17:15 Aspirin 81 Mg Tab.Chew PO 10/19/24 16:51 324 mg STAT ONE Administration Aspirin Confirm 10/19/24 17:12 Aspirin 81 Mg Tab.Chew Administered 10/19/24 17:13 Dose 324 mg .ROUTE .STK-MED ONE Metoprolol Tartrate 5 mg 10/19/24 16:50 10/19/24 17:15 Metoprolol Tartrate 5 Mg/5 Ml Vial IV 10/19/24 16:51 5 mg STAT ONE Administration Metoprolol Tartrate Confirm 10/19/24 17:12 Metoprolol Tartrate 5 Mg/5 Ml Vial Administered 10/19/24 17:13 Dose 5 mg IV .STK-MED ONE Lab/Rad Data: Laboratory Result Diagrams 10/19/24 Unknown 10/19/24 Unknown Laboratory Results 10/19/24 10/19/24 10/19/24 Range/Units Unknown Unknown Unknown WBC (3.98-10.04) x10^3/uL RBC (3.93-5.22) x10^6/uL Hgb (11.2-15.7) g/dL Hct (34.1-44.9) % MCV (79.4-94.8) fL MCH (25.6-32.2) pg MCHC (32.2-35.5) g/dL RDW (11.7-14.4) % Plt Count (182-369) x10^3/uL MPV (9.4-12.3) fL Gran % (34.0-71.1) % Immature Gran % (Auto) (0.001-0.429) % Nucleat RBC Rel Count (0.00-0.2) % Eos # (Auto) (0.04-0.36) x10^3/uL Immature Gran # (Auto) (0.001-0.031) x10^3u/L Absolute Lymphs (auto) (1.18-3.74) x10^3/uL Absolute Monos (auto) (0.24-0.86) x10^3/uL Absolute Nucleated RBC (0.00-0.012) x10^3u/L Lymphocytes % (19.3-51.7) % Monocytes % (4.7-12.5) % Eosinophils % (0.7-5.8) % Basophils % (0.1-1.2) % Absolute Granulocytes (1.56-6.13) x10^3/uL Basophils # (0.01-0.08) x10^3/uL D-Dimer 0.50 (0.0-0.50) mg/L Sodium 137 (135-145) mmol/L Potassium 3.9 (3.5-5.1) mmol/L Chloride 104 (98-107) mmol/L Carbon Dioxide 23 (22-30) mmol/L Anion Gap 14.6 (5-15) MEQ/L BUN 4 L (7-17) mg/dL Creatinine 0.71 (0.52-1.04) mg/dL Estimated GFR 120.2 ML/MIN Glucose 80 (74-106) mg/dL Calcium 9.2 (8.4-10.2) mg/dL Total Bilirubin 0.80 (0.2-1.3) mg/dL AST 26 (14-36) U/L ALT 17 (0-35) U/L Alkaline Phosphatase 77 (38-126) U/L Troponin I < 0.012 (0.000-0.033) ng/mL Serum Total Protein 7.2 (6.3-8.2) g/dL Albumin 4.3 (3.5-5.0) g/dL 10/19/24 Range/Units Unknown WBC 6.1 (3.98-10.04) x10^3/uL RBC 4.01 (3.93-5.22) x10^6/uL Hgb 12.3 (11.2-15.7) g/dL Hct 37.4 (34.1-44.9) % MCV 93.3 (79.4-94.8) fL MCH 30.7 (25.6-32.2) pg MCHC 32.9 (32.2-35.5) g/dL RDW 13.6 (11.7-14.4) % Plt Count 193 (182-369) x10^3/uL MPV 10.6 (9.4-12.3) fL Gran % 68.0 (34.0-71.1) % Immature Gran % (Auto) 0.5 H (0.001-0.429) % Nucleat RBC Rel Count 0.0 (0.00-0.2) % Eos # (Auto) 0.01 L (0.04-0.36) x10^3/uL Immature Gran # (Auto) 0.03 (0.001-0.031) x10^3u/L Absolute Lymphs (auto) 1.35 (1.18-3.74) x10^3/uL Absolute Monos (auto) 0.54 (0.24-0.86) x10^3/uL Absolute Nucleated RBC 0.00 (0.00-0.012) x10^3u/L Lymphocytes % 22.1 (19.3-51.7) % Monocytes % 8.9 (4.7-12.5) % Eosinophils % 0.2 L (0.7-5.8) % Basophils % 0.3 (0.1-1.2) % Absolute Granulocytes 4.15 (1.56-6.13) x10^3/uL Basophils # 0.02 (0.01-0.08) x10^3/uL D-Dimer (0.0-0.50) mg/L Sodium (135-145) mmol/L Potassium (3.5-5.1) mmol/L Chloride (98-107) mmol/L Carbon Dioxide (22-30) mmol/L Anion Gap (5-15) MEQ/L BUN (7-17) mg/dL Creatinine (0.52-1.04) mg/dL Estimated GFR ML/MIN Glucose (74-106) mg/dL Calcium (8.4-10.2) mg/dL Total Bilirubin (0.2-1.3) mg/dL AST (14-36) U/L ALT (0-35) U/L Alkaline Phosphatase (38-126) U/L Troponin I (0.000-0.033) ng/mL Serum Total Protein (6.3-8.2) g/dL Albumin (3.5-5.0) g/dL - Progress Progress: improved, re-examined Air Movement: good Progress Note: 10/19/24 17:45 My medical decision making in the assignment of moderate complexity to this patient's medical issue today is based on review of the patient's past medical history, reviewed the patient's medication list, reviewed patient drug allergy list, history present illness and physical findings on examination. The workup in this patient includes placement of a intravenous line, infusion of normal saline solution, Lopressor intravenously, CBC, CMP, magnesium level, troponin level, twelve-lead EKG, D-dimer level. Chest x-ray versus CT scan of the chest with contrast depending on the D-dimer level. Likely, the patient will be sent home with a Holter monitor. Differential diagnosis includes but is not limited to electrolyte abnormalities, acute myocardial infarction, pulmonary embolus, pneumonia, urinary tract infection, electrolyte abnormalities, arrhythmias 10/19/24 19:08 I interpreted the patient's preliminary chest x-ray report. I do not appreciate any acute cardiopulmonary process. I interpreted the patient's laboratory data results. Based on the laboratory data results, there are no acute, emergent medical issues Blood Culture(s) Obtained: No Antibiotics given: No Counseled pt/family regarding: lab results, diagnosis, need for follow-up, rad results Medical Desision Making - Independent Historian Additional History obtained from: Family - Diagnostic Testing Diagnostic test were ordered, analyzed, and reviewed by me: Yes Radiological Interpretation: Interpreted by me, Teleradiologist Report - Risk of complications Minimal Risk: Minimal risk of morbidity - Departure Departure Disposition: Home Clinical Impression: Sinus tachycardia Condition: Stable Critical Care Time: No Referrals: ALONDRA MADDEN MD [Primary Care Provider] - Follow up/PCP as directed Additional Instructions: Drink plenty of fluids. Take all your medications as prescribed. Return to the emergency department if your symptoms recur. Wear the Holter monitor and return it as instructed.
[2024-10-19 16:39] VITALS: TEMP 98.8
[2024-10-19 17:09] LABS: Absolute Neutrophil Ct (ANC) 4.15 x10^3/uL (1.56-6.13); BASOPHIL % 0.3 % (0.1-1.2); Basophil (Absolute #) 0.02 x10^3/uL (0.01-0.08); Eosinophil % 0.2 % (0.7-5.8); Eosinophil (Absolute #) 0.01 x10^3/uL (0.04-0.36); Hematocrit 37.4 % (34.1-44.9); Hemoglobin 12.3 g/dL (11.2-15.7); IMMATURE GRAN # 0.03 x10^3u/L (0.001-0.031); IMMATURE GRAN % 0.5 % (0.001-0.429); Lymphocyte (Absolute #) 1.35 x10^3/uL (1.18-3.74); Lymphocytes % 22.1 % (19.3-51.7); Mean Cell Volume 93.3 fL (79.4-94.8); Mean Corpuscular Hemoglobin 30.7 pg (25.6-32.2); Mean Corpuscular Hgb Concent. 32.9 g/dL (32.2-35.5); Mean Platelet Volume 10.6 fL (9.4-12.3); Monocyte (Absolute #) 0.54 x10^3/uL (0.24-0.86); Monocytes % 8.9 % (4.7-12.5); Platelet Count 193 x10^3/uL (182-369); Red Blood Count 4.01 x10^6/uL (3.93-5.22); Red Cell Distribution Width 13.6 % (11.7-14.4); White Blood Count 6.1 x10^3/uL (3.98-10.04)
[2024-10-19] MEDS ORDERED: LOPRESSOR INJECTION IV ONE (17:12)
[2024-10-19] MEDS ORDERED: BABY ASPIRIN 81 MG CHEW ONE (17:12)
[2024-10-19] MEDS: BABY ASPIRIN 81 MG CHEW PO ONE (17:15)
[2024-10-19] MEDS: LOPRESSOR INJECTION IV ONE (17:15)
[2024-10-19 18:17] LABS: ALBUMIN 4.3 g/dL (3.5-5.0); ANION GAP 14.6 MEQ/L (5-15); BILIRUBIN,TOTAL 0.8 mg/dL (0.2-1.3); Calcium 9.2 mg/dL (8.4-10.2); Creatinine 1 0.71 mg/dL (0.52-1.04); EST GLOMERULAR FILTRATION RATE 120.2 ML/MIN; Potassium 3.9 mmol/L (3.5-5.1); Total Protein 7.2 g/dL (6.3-8.2)
[2024-10-19 19:03] VITALS: BP 100/80; PULSE 93; RESP 20; O2SAT 97
--- NOTE | 2024-10-19 19:27 | XRAY ---
Indication: Chest pain. Comparison: None Portable chest demonstrates normal heart, lungs, and bony thorax.
== END 2024-10-19 19:22 | disposition home or self-care (01) ==
LOC: ED 16:28
DX: R00.0 Tachycardia, unspecified (principal); R07.9 Chest pain, unspecified; D82.1 Di George's syndrome; Q93.81 Velo-cardio-facial syndrome; Z79.899 Other long term (current) drug therapy
CPT/HCPCS: 36415; 71045; 80053; 84484; 85025; 85379; 93005; 93041; 93225; 94760; 96374; 99284; 99285; A9270-GY